=== PATIENT | male | born 1935 | race African-American/Black ===

== ENCOUNTER 2016-10-02 08:57 | Inpatient (IN) | payer OTHER ==
[2016-10-02] MEDS ORDERED: SODIUM CHLORIDE 1,000 ML IV STA (09:30)
--- NOTE | 2016-10-02 09:30 | PDOC ---
History of Present Illness - General History Source: Patient, Old Records - History of Present Illness Initial Comments: 10/02/16 09:48 The patient is a 81-year-old man, accompanied by family, with a significant past medical history of hypertension, non-insulin dependent diabetes mellitus ( baseline BGM 150s), arthritis, migraines and hemorrhoids who presents to the emergency department via for further evaluation of bright red scant rectal bleeding for the past 3-4 days. Patient states that he has experienced rectal bleeding in the past. This morning, he reports having a normal bowel movement- hard in texture with noted blood. He states that while having a bowel movement, he felt lightheaded and loss consciousness. No head injury, as family was present in the bathroom and caught him before falling. He states that he has experienced this in the past. He now reports associated symptoms of a migraine headache, for which always present with his history of rectal bleeding. He underwent a colonoscopy, approximately 2 years ago, which was indicative for polyps that were removed. He also states that he overall feels weak. No other complaints. Patient admits he came in to the emergency department due to losing consciousness today and is not concern for his rectal bleeding. He denies chest pain, cough, shortness of breath. He denies abdominal pain, nausea, vomiting, diarrhea He denies dysuria, hematuria, urinary frequency/urgency, flank pain. Allergies: No Known Drug Allergies Past Surgical History: Colonoscopy Social History: Former smoker (approximately 50 years ago). No EtOH and recreational drug use. Primary Care Physician: Dr. Juve Hickman Overhead Irrigator: Dr. James Gutierres <Lizz Noguera - Last Filed: 10/02/16 12:08> - General History Source: Patient Exam Limitations: No Limitations <Christi Woods - Last Filed: 10/03/16 08:20> - General Chief Complaint: Rectal Bleed Stated Complaint: GI BLEED Time Seen by Provider: 10/02/16 09:29 Past History <Lizz Noguera - Last Filed: 10/02/16 12:08> - Past Medical History Diabetes: Yes HTN: Yes Suicide Attempt (Hx): No - Immunization History Immunization Up to Date: Yes - Psycho/Social/Smoking Cessation Hx Anxiety: No Suicidal Ideation: No Smoking History: Former smoker Have you smoked in the past 12 months: No Number of Cigarettes Smoked Daily: 0 If you are a former smoker, when did you quit?: 50 YRS AGO Information on smoking cessation initiated: No Hx Alcohol Use: No Drug/Substance Use Hx: No Substance Use Type: None <Christi Woods - Last Filed: 10/03/16 08:20> - Past Medical History Allergies/Adverse Reactions: Allergies Allergy/AdvReac Type Severity Reaction Status Date / Time No Known Allergies Allergy Verified 10/02/16 09:25 Home Medications: Ambulatory Orders Acetaminophen/Caffeine/Butalb [Fioricet -] 1 tab PO TID 03/30/13 Glipizide [Glucotrol -] 5 mg PO DAILY 09/04/14 Losartan Potassium 100 mg PO DAILY 09/04/14 Review of Systems - Review of Systems Able to Perform ROS?: Yes Comments:: 10/02/16 09:48 GENERAL/CONSTITUTIONAL: Yes: Generalized weakness. No: fever, chills, loss of appetite. HEAD, EYES, EARS, NOSE AND THROAT: No: change in vision, ear pain, discharge, sore throat, throat swelling. CARDIOVASCULAR: Yes: Lightheadedness. Loss of Consciousness. No: chest pain, palpitations, RESPIRATORY: No: cough, shortness of breath, wheezing, hemoptysis, stridor. GASTROINTESTINAL: Yes: Hematochecia. No: nausea, vomiting, abdominal cramping, diarrhea, constipation. GENITOURINARY: No: dysuria, hematuria, frequency, urgency, flank pain. MUSCULOSKELET AL: No: back pain, neck pain, joint pain, muscle swelling or pain SKIN AND BREASTS: No: lesions, pallor, rash or easy bruising. NEUROLOGIC:Yes: Migraine headaches. Loss of consciousness. No: vertigo, paresthesias, weakness ENDOCRINE: No: unexplained weight gain or loss HEMATOLOGIC/LYMPHATIC: No: easy bleeding, swelling nodes <Lizz Noguera - Last Filed: 10/02/16 12:08> *Physical Exam - Vital Signs Last Vital Signs Temp Pulse Resp BP Pulse Ox 97.1 F L 118 H 20 92/60 100 10/02/16 09:23 10/02/16 09:23 10/02/16 09:23 10/02/16 09:23 10/02/16 09:23 - Physical Exam Comments: 10/02/16 09:48 GENERAL: The patient is in no acute distress. HEAD: Normal with no signs of trauma. EYES: PERRLA, EOMI, sclera anicteric, pale conjunctiva. ENT: Ears normal, nares patent, oropharynx clear without exudates. Moist mucous membranes. Pale lips. NECK: Normal range of motion, supple without lymphadenopathy, JVD, or masses. LUNGS: Breath sounds equal, clear to auscultation bilaterally. No wheezes, and no crackles. HEART:Regular rate and rhythm, normal S1 and S2 without murmur, rub or gallop. ABDOMEN: Soft, nontender, normoactive bowel sounds. No guarding, no rebound. RECTAL: No external hemorrhoids. There is some maroon colored stool. EXTREMITIES: Normal range of motion, no edema. No clubbing or cyanosis. No erythema, or tenderness. NEUROLOGICAL: Cranial nerves II through XII grossly intact. Normal speech. No focal neurological deficits. MUSCULOSKELETAL: Back non-tender to palpation, no CVA tenderness SKIN: Warm, Dry. Pale nail beds. No rashes or lesions noted. <Lizz Noguera - Last Filed: 10/02/16 12:08> - Vital Signs Last Vital Signs Temp Pulse Resp BP Pulse Ox 97.1 F L 118 H 20 92/60 100 10/02/16 09:23 10/02/16 09:23 10/02/16 09:23 10/02/16 09:23 10/02/16 09:23 <Christi Woods - Last Filed: 10/03/16 08:20> Heart Score/ECG Review #1 ECG reviewed & interpreted by me at: 10:32 10/02/16 10:32 Twelve-lead EKG was performed and reviewed by me. There is normal sinus rhythm with a tachycardiac rate of 117bpm. The axis is normal. The intervals are normal - pr: 158ms, QRS:90ms, QTc:460ms. There are no ST elevations. T waves peaked??? prominent v2, v3 <Christi Woods - Last Filed: 10/03/16 08:20> ED Treatment Course - LABORATORY CBC & Chemistry Diagram: 10/02/16 10:45 10/02/16 10:45 - RADIOLOGY Radiograph Interpretation: 10/02/16 11:25 EXAM: RAD/CHEST X-RAY PORTABLE Interpreted by Dr. Codey Laguna IMPRESSION: Parasellar study September 08, 2013. Unremarkable contour of the cardiomediastinal silhouette. No evidence of pneumonia, CHF, pleural effusion or pneumothorax. No lung mass is seen within limitation of examination. No evidence of bulky hilar adenopathy. Intact visualized osseous structures. Degenerative changes are noted in the region of the left greater tuberosity. <Lizz Noguera - Last Filed: 10/02/16 12:08> - LABORATORY CBC & Chemistry Diagram: 10/03/16 05:35 10/03/16 05:35 <Christi Woods - Last Filed: 10/03/16 08:20> Medical Decision Making - Critical Care Time Total Critical Care Time (minutes): 35 Critical Care Statement: The care of this patient involved high complexity decision making to prevent further life threatening deterioration of the patient 's condition and/or to evalute & treat vital organ system(s) failure or risk of failure. - Medical Decision Making 10/02/16 11:[address] Hickman. Immediate response. Case was discussed. <Lizz Noguera - Last Filed: 10/02/16 12:08> - Critical Care Time Total Critical Care Time (minutes): 35 Critical Care Statement: The care of this patient involved high complexity decision making to prevent further life threatening deterioration of the patient 's condition and/or to evalute & treat vital organ system(s) failure or risk of failure. - Medical Decision Making 10/02/16 09:30 A portion of this note was documented by scribe services under my direction. I have reviewed the details of the note, within reason, and agree with the documentation with the following case summary and management plan written by me. Nursing documentation reviewed and incorporated into medical decision making 10/02/16 10:57 This is a 81 yo M with a history of HTN, DM, prior history of rectal bleed, last colonoscopy 4 years ago (polyp which was removed) Pt notes that he has had rectal bleeding which fills part of the toilet bowl each time he has a bowel movement He is having 3-4 bowel movements per day He did not want to come to the hospital, though he has been feeling weak He came to the ER today because he felt light headed and dizzy and passed out No chest pain No palpitations No shortness of breath On examination: Pt is pale appearing pale conjunctiva and nail beds No abdominal tenderness to palpation Will do labs Pt appears to be anemic Will do type and screen Will start IV fluids 10/02/16 11:20 10/02/16 11:21 Laboratory Tests 04/03/13 10/02/16 06:00 10:45 WBC 8.1 9.0 Hgb 9.8 L D 7.8 L D Hct 23.4 L D MCV 97.9 H Plt Count 185 D 164 Will order PRBCs 10/02/16 11:32 Laboratory Tests 04/03/13 10/02/16 10/02/16 06:00 10:30 10:45 Sodium 142 Potassium 5.0 D Chloride 107 Carbon Dioxide 21 D Anion Gap 14 BUN 8 30 H D Creatinine 0.9 D 1.4 H D Random Glucose 160 H 266 H D Creatine Kinase Troponin I Stool Occult Blood Negative 10/02/16 10:45 Sodium Potassium Chloride Carbon Dioxide Anion Gap BUN Creatinine Random Glucose Creatine Kinase 122 Troponin I 0.04 D Stool Occult Blood Will contact Dr Hickman Will admit 10/02/16 11:[address] Hickman's service He is aware of this patient and would like pt admitted to tele Will consult GI Clinical impression: syncope, anemia, rectal bleeding <Christi Woods - Last Filed: 10/03/16 08:20> *DC/Admit/Observation/Transfer - Attestations Scribe Attestion: 10/02/16 09:48 Documentation prepared by Lizz Noguera, acting as medical assistant instructor for Christi Woods MD. <Lizz Noguera - Last Filed: 10/02/16 12:08> - Discharge Dispostion Admit: Yes <Christi Woods - Last Filed: 10/03/16 08:20> Diagnosis at time of Disposition: Rectal bleeding, Syncope and collapse - Discharge Dispostion Condition at time of disposition: Stable - Referrals
[2016-10-02 10:57] LABS: BASOPHIL 0.3 % (0-2.0); MCH 34.6 pg (25.7-33.7); MCHC 33.3 g/dl (32.0-35.9); MEAN CELL VOLUME 103.9 fl (80-96); MEAN PLT VOLUME 7.4 fl (7.5-11.1); NEUTROPHILS 79.8 % (42.8-82.8); PLATELET COUNT 164 K/MM3 (134-434); RDW 14.3 % (11.9-15.9)
[2016-10-02 11:14] LABS: INR 1.19 (0.82-1.09); PROTHROMBIN TIME (PATIENT) 13.1 SEC (9.98-11.88)
[2016-10-02 11:16] LABS: ALBUMIN 3.1 g/dl (3.4-5.0); BILIRUBIN,TOTAL 0.3 mg/dL (0.2-1.0); COCKROFT - GAULT 43.91; CREATININE 1.4 mg/dL (0.7-1.3); TOT PROT 5.8 g/dl (6.4-8.2)
[2016-10-02 11:22] LABS: TROPONIN I 0.04 ng/ml (0.00-0.05)
[2016-10-02] MEDS: PANTOPRAZOLE SODIUM 100 ML IVPB SCH (13:00)
[2016-10-02] MEDS ORDERED: D5-1/2NS+10 MEQ KCL - 1,000 ML IV SCH (13:30)
--- NOTE | 2016-10-02 13:38 | HP ---
Admitting History and Physical - Primary Care Physician PCP: Juve Hickman - Admission Chief Complaint: Passed out with bleeding CO History of Present Illness: 81 h/o HTN, Migraine, T2DM, Lower GI bleeding in the past present after an episode of transient loss of consciousness, as per patient he has been having bleeding CO for past 3 days today got up and walked to wash room felt weak and , dizzy passed out, patient landed on wall , came to rescue, transfer the patient to bed , patient was staring, diaphoretic and un responsive for 1 minute gradually became alert but felt weak came to Ed for evaluation in the Ed Hypotenuse with dehydration and low H/H EKG sinus tachycardia, GI and Cardiology consult called, patient denies any focal weakness, seizure,, incontinence, chest pain or SOB at the time of examination feels improved.No NSAID use, no c/o epigastric pain, nausea or vomiting.Last colonoscopy was 3 yrs ago. History Source: Patient Limitations to Obtaining History: No Limitations - Past Medical History Cardiovascular: Yes: HTN Gastrointestinal: Yes: Constipation, GI Bleed Heme/Onc: Yes: Anemia Endocrine: Yes: Diabetes Mellitus - Past Surgical History Past Surgical History: Yes: None - Smoking History Smoking history: Former smoker Have you smoked in the past 12 months: No Aproximately how many cigarettes per day: 0 If you are a former smoker, when did you quit?: 50 YRS AGO - Alcohol/Substance Use Hx Alcohol Use: No - Social History Usual Living Arrangement: Yes: With Spouse History of Recent Travel: No Home Medications - Allergies Allergies/Adverse Reactions: Allergies Allergy/AdvReac Type Severity Reaction Status Date / Time No Known Allergies Allergy Verified 10/02/16 09:25 - Home Medications Home Medications: Ambulatory Orders Acetaminophen/Caffeine/Butalb [Fioricet -] 1 tab PO TID 03/30/13 Glipizide [Glucotrol -] 5 mg PO DAILY 09/04/14 Losartan Potassium 100 mg PO DAILY 09/04/14 Lidocaine 2% Jelly [Xylocaine 2% Jelly] 10 applic TP TID PRN #1 applic 10/05/16 Pantoprazole Sodium [Protonix -] 20 mg PO DAILY #30 cap 10/05/16 Polyethylene Glycol 3350 [Miralax 119 gm Btl -] 17 gm PO DAILY #1 bottle Family Disease History - Family Disease History Family Disease History: Heart Disease: Father, Mother Review of Systems - Review of Systems Constitutional: reports: Diaphoresis Eyes: reports: No Symptoms. denies: Blind Spots HENT: reports: No Symptoms Neck: reports: No Symptoms Cardiovascular: reports: No Symptoms Respiratory: reports: No Symptoms Gastrointestinal: reports: Constipation. denies: Rectal Bleeding Genitourinary: reports: No Symptoms Musculoskeletal: reports: No Symptoms Neurological: reports: No Symptoms Endocrine: reports: No Symptoms Hematology/Lymphatic: reports: No Symptoms Psychiatric: reports: No Symptoms Physical Examination Vital Signs: Vital Signs Temperature 97.1 F L 10/02/16 09:23 Pulse Rate 118 H 10/02/16 09:23 Respiratory Rate 20 10/02/16 09:23 Blood Pressure 92/60 10/02/16 09:23 O2 Sat by Pulse Oximetry (%) 100 10/02/16 09:23 Constitutional: Yes: Well Nourished, Calm Eyes: Yes: WNL, Conjunctiva Clear, EOM Intact HENT: Yes: WNL, Atraumatic, Normocephalic Neck: Yes: WNL, Supple Cardiovascular: Yes: WNL, Regular Rate and Rhythm, S1, S2. No: Murmur Respiratory: Yes: WNL, Regular, CTA Bilaterally Gastrointestinal: Yes: WNL, Normal Bowel Sounds, Soft, Rectal Bleeding. No: Distention, Hematemesis ...Rectal Exam: Yes: Guaiac Positive Renal/: Yes: WNL. No: Anuria Musculoskeletal: Yes: WNL. No: Back Pain Extremities: Yes: WNL Edema: No Peripheral Pulses WNL: Yes Peripheral Pulses: Left Doralis Pedis: 1+, Right Dorsalis Pedis: 1+ Neurological: Yes: WNL, Alert, Oriented ...Motor Strength: WNL, LUE, LLE, RUE, RLE Labs: CBC,CMP WBC 9.0 K/mm3 (4.0-10.0) 10/02/16 10:45 RBC 2.25 M/mm3 (4.00-5.60) L D 10/02/16 10:45 Hgb 7.8 GM/dL (11.7-16.9) L D 10/02/16 10:45 Hct 23.4 % (35.4-49) L D 10/02/16 10:45 MCV 103.9 fl (80-96) H 10/02/16 10:45 MCHC 33.3 g/dl (32.0-35.9) 10/02/16 10:45 RDW 14.3 % (11.9-15.9) D 10/02/16 10:45 Plt Count 164 K/MM3 (134-434) 10/02/16 10:45 MPV 7.4 fl (7.5-11.1) L 10/02/16 10:45 Neutrophils % 79.8 % (42.8-82.8) 10/02/16 10:45 Lymphocytes % 13.0 % (8-40) D 10/02/16 10:45 Monocytes % 6.9 % (3.8-10.2) 10/02/16 10:45 Eosinophils % 0.0 % (0-4.5) D 10/02/16 10:45 Basophils % 0.3 % (0-2.0) 10/02/16 10:45 Sodium 142 mmol/L (136-145) 10/02/16 10:45 Potassium 5.0 mmol/L (3.5-5.1) D 10/02/16 10:45 Chloride 107 mmol/L (98-107) 10/02/16 10:45 Carbon Dioxide 21 mmol/L (21-32) D 10/02/16 10:45 Anion Gap 14 (8-16) 10/02/16 10:45 BUN 30 mg/dL (7-18) H D 10/02/16 10:45 Creatinine 1.4 mg/dL (0.7-1.3) H D 10/02/16 10:45 Creat Clearance w eGFR 48.89 (>60) 10/02/16 10:45 Random Glucose 266 mg/dL (74-106) H D 10/02/16 10:45 Calcium 8.0 mg/dL (8.5-10.1) L 10/02/16 10:45 Total Bilirubin 0.3 mg/dL (0.2-1.0) D 10/02/16 10:45 AST 12 U/L (15-37) L D 10/02/16 10:45 ALT 15 U/L (12-78) D 10/02/16 10:45 Alkaline Phosphatase 95 U/L (45-117) 10/02/16 10:45 Creatine Kinase 122 IU/L (39-308) 10/02/16 10:45 Troponin I 0.04 ng/ml (0.00-0.05) D 10/02/16 10:45 Total Protein 5.8 g/dl (6.4-8.2) L 10/02/16 10:45 Albumin 3.1 g/dl (3.4-5.0) L 10/02/16 10:45 Imaging - Results X-ray: Report Reviewed (Normal) EKG: Report Reviewed (Sinus Tcahycardia non specific St t changes) Problem List - Problems (1) Syncope and collapse Assessment/Plan: Due to dehydration and acute GI Blood loss but considering old age will monitor on tele serial CE and ECHO, cardiology consult hold BP meds for Hypotention , IV Hydration 2 unit PRBC Code(s): R55 - SYNCOPE AND COLLAPSE (2) Anemia due to acute blood loss Assessment/Plan: symptomaticc anemia due to acute lower GI Bleeding, blood transfusion, GI Consult NPO for possible procedure IV PPI Code(s): D62 - ACUTE POSTHEMORRHAGIC ANEMIA (3) Dehydration Assessment/Plan: IV Hydration F/UI BMP Code(s): E86.0 - DEHYDRATION (4) Acute lower GI bleeding Assessment/Plan: H/O lower Goi bleeding present with recurrence low H/H, NPO, IV PPI, GI consult , IV Hydration, serial H/H q 6 hrs, 2 unit PRBC target H/H 9.00 gm Code(s): K92.2 - GASTROINTESTINAL HEMORRHAGE, UNSPECIFIED (5) T2DM (type 2 diabetes mellitus) Assessment/Plan: Hold Po meds on correction dose insulin Code(s): E11.9 - TYPE 2 DIABETES MELLITUS WITHOUT COMPLICATIONS Qualifiers: Diabetes mellitus complication status: without complication Diabetes mellitus fci insulin use: without buttermaker use Qualified Code(s): E11.9 - Type 2 diabetes mellitus without complications (6) Migraine Code(s): G43.909 - MIGRAINE, UNSP, NOT INTRACTABLE, WITHOUT STATUS MIGRAINOSUS (7) Hypotension Assessment/Plan: Due to dehydration and bleeding CO improved after IV Hydration. Code(s): I95.9 - HYPOTENSION, UNSPECIFIED Qualifiers: Hypotension type: neurogenic orthostatic hypotension Qualified Code( s): G90.3 - Multi-system degeneration of the autonomic nervous system Assessment/Plan Active Medications Generic Name Dose Route Start Last Admin Trade Name Freq PRN Reason Stop Dose Admin Acetaminophen/Butalbital/Caffeine 1 tablet 10/02/16 14:00 Fioricet - PO TID PRN Sodium Chloride 1,000 mls @ 75 mls/hr 10/02/16 09:30 10/02/16 09:30 Normal Saline - IV 10/02/16 22:49 75 mls/hr ASDIR STA Administration Pantoprazole Sodium 100 mls @ 200 mls/hr 10/02/16 13:30 Protonix 40mg Ivpb (Pre-Docked) IVPB DAILY NATALIA Insulin Aspart 1 vial 10/02/16 16:30 Novolog Vial Sliding Scale - SQ TIDAC NATALIA Protocol (1) Syncope and collapse Assessment/Plan: Due to dehydration and acute GI Blood loss but considering old age will monitor on tele serial CE and ECHO, cardiology consult hold BP meds for Hypotention , IV Hydration 2 unit PRBC (2) Anemia due to acute blood loss Assessment/Plan: symptomatic anemia due to acute lower GI Bleeding, blood transfusion, GI Consult NPO for possible procedure IV PPI (3) Dehydration Assessment/Plan: IV Hydration F/UI BMP (4) Acute lower GI bleeding Assessment/Plan: H/O lower Goi bleeding present with recurrence low H/H, NPO, IV PPI, GI consult , IV Hydration, serial H/H q 6 hrs, 2 unit PRBC target H/H 9.00 gm (5) T2DM (type 2 diabetes mellitus) Assessment/Plan: Hold Po meds on correction dose insulin C (6) Migraine Code(s): G43.909 - MIGRAINE, UNSP, NOT INTRACTABLE, WITHOUT STATUS MIGRAINOSUS (7) Hypotension Assessment/Plan: Due to dehydration and bleeding CO improved after IV Hydration.
--- NOTE | 2016-10-02 15:09 | CON.GI ---
Consult Consult Specialty:: GI Referred by:: Dr. Hickman Reason for Consultation:: Rectal bleeding - History of Present Illness Chief Complaint: "I was constipated and bleeding" History of Present Illness: 81M admitted for evaluation of lightheadedness. He has been experiencing intermittent bright red blood per rectum (no clots) only when straining to have a bowel movement over the last 3 days. The stool he has passed has also been hard as well and he attempts manual disimpaction. There was no melena. He takes an OTC pain medication for his knee however he cannot remember the name of the medicine. He last noted rectal bleeding 6am. 10:45am blood work revealed revealed hgb of 7.8 and mcv of 103.9. He does not recall ever having a hematology evaluation and says that his last drink was last father's day in 2015. He is tachycardic in the ER and fluids / blood were just started. There has been no overt rectal bleeding in the ER. he was last seen in the office by Dr. Rivera 01/27/15. He saw Mr. Pritchett for fopllow-up of rectal bleeding. Colonoscopy had been performed 12/30/[address] rivera revealing moderate divertoculosis throughout the colon and enlarged/friable internal hemorrhoids. At the follow-up office visit, Dr. Rivera suggested conservative measures for treatment of the internal hemorrhoids (he felt this was the source of his previous bleeding) and if continued bleeding, surgical evaluation or evaluation for band ligation. He also had a colonoscopy 2012 when he was admitted to [facility] for hematochezia. Colonoscopy revealed blood in the left colon, moderate diverticulosis throughout the colon, enlarged hemorrhoids and led to the removal of a serrated adenoma of the transverse colon. EGD at that time revealed GERD, a hiatal hernia and antral erosions. The duodenum was normal. He currently denies any abdominal pain, nausea, vomiting. - History Source History Provided By: Patient, Family Member Limitations to Obtaining History: No Limitations - Past Medical History Cardio/Vascular: Yes: HTN Gastrointestinal: Yes: Constipation, Diverticulosis (with suspected diverticular bleed 2012, hemorrhoidal bleed 2014), Gastritis, GI Bleed, Hemorrhoids (Internal hemorrhoids noted from colonoscopy 2012), Hiatal Hernia, Other (colon polyps) Renal/: Yes: BPH, Renal Calculi Endocrine: Yes: Diabetes Mellitus Additional Medical History: Migraines - Past Surgical History Past Surgical History: Yes: None - Alcohol/Substance Use Hx Alcohol Use: Yes 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, Heroin - Smoking History Smoking history: Former smoker Have you smoked in the past 12 months: No Aproximately how many cigarettes per day: 0 If you are a former smoker, when did you quit?: 50 YRS AGO - Social History Usual Living Arrangement: With Spouse ADL: Independent 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 Place of : [facility] History of Recent Travel: No Home Medications - Allergies Allergies/Adverse Reactions: Allergies Allergy/AdvReac Type Severity Reaction Status Date / Time No Known Allergies Allergy Verified 10/02/16 09:25 - Home Medications Home Medications: Ambulatory Orders Acetaminophen/Caffeine/Butalb [Fioricet -] 1 tab PO TID 03/30/13 Glipizide [Glucotrol -] 5 mg PO DAILY 09/04/14 Losartan Potassium 100 mg PO DAILY 09/04/14 Family Disease History - Family Disease History Family Disease History: Heart Disease: Father (DM II), Mother (DM II), Other: Father, Mother, Brother (Pancreatic ca) Other Family History: No family history of colorectal ca. Review of Systems - Review of Systems Constitutional: reports: Weakness. denies: Diaphoresis, Loss of Appetite Cardiovascular: denies: Chest Pain Respiratory: denies: SOB Musculoskeletal: reports: Joint Pain (left knee) Physical Exam-GI Vital Signs: Vital Signs Temperature 97.1 F L 10/02/16 09:23 Pulse Rate 118 H 10/02/16 09:23 Respiratory Rate 20 10/02/16 09:23 Blood Pressure 92/60 10/02/16 09:23 O2 Sat by Pulse Oximetry (%) 100 10/02/16 09:23 Constitutional: Yes: Calm Eyes: No: Sclera Icterus Neck: Yes: Supple Cardiovascular: Yes: Tachycardia. No: Murmur Respiratory: Yes: CTA Bilaterally Gastrointestinal Inspection: No: Distention, Scars ...Auscultate: Yes: Normoactive Bowel Sounds ...Palpate: No: Hepatomegaly, Splenomegaly, Tenderness ...Percussion: No: Tympanitic ...Rectal Exam: Yes: Other (scant red blood mixed with scant brown liquid stool. 2 + prostate) Edema: No Neurological: Yes: Alert, Oriented Labs: INR, PTT INR 1.19 (0.82-1.09) H 10/02/16 10:45 CBC, BMP 10/02/16 10:45 10/02/16 10:45 Hepatic Panel Total Bilirubin 0.3 mg/dL (0.2-1.0) D 10/02/16 10:45 AST 12 U/L (15-37) L D 10/02/16 10:45 ALT 15 U/L (12-78) D 10/02/16 10:45 Alkaline Phosphatase 95 U/L (45-117) 10/02/16 10:45 Albumin 3.1 g/dl (3.4-5.0) L 10/02/16 10:45 Problem List - Problems (1) Rectal bleeding Assessment/Plan: Given history suspect either diverticular bleeding or hemorrhoidal bleeding, both of which can be precipitated by constipation. Mr. Pritchett is tachycardic/ hypovomemic and needs to be resuscitated. blood and IV fluids were started when i was evaluating him He should be placed in monitored setting and kept NPO except meds w/ small sips water If active bleeding persists he should be transferred to ICU for closer monitoring When resuscitated, will consider bowel prep for follow-up colon and for possible hemorrhoidal banding Monitor serial H/H Q 8 hours As outpatient once acute issues are resolved he will need to be on standing laxative therapy ie MiraLAX 17g daily Code(s): K62.5 - HEMORRHAGE OF ANUS AND RECTUM
[2016-10-02] MEDS ORDERED: ACETAMINOPHEN/CAFFEINE/BUTALBITAL 1 TAB ONE (15:52)
[2016-10-02] MEDS: ACETAMINOPHEN/CAFFEINE/BUTALBITAL 1 TAB PO PRN ×2 (15:54→23:43)
[2016-10-02] MEDS ORDERED: INSULIN SLIDING SCALE (NOVOLOG) 1 VIAL SQ SCH (16:30)
[2016-10-02 16:50] VITALS: BMI 23.7
[2016-10-02] MEDS: INSULIN SLIDING SCALE (NOVOLOG) 1 VIAL SQ SCH ×2 (17:50→23:15)
--- NOTE | 2016-10-02 17:58 | CON.CARD ---
Consult Consult Specialty:: Cardiology Referred by:: Juve Hickman MD Reason for Consultation:: Syncope - History of Present Illness Chief Complaint: Syncope History of Present Illness: 81 M h/o DM, HTN, diverticulosis, friable internal hemorrhoids, hiatal hernia, antral erosions admitted for evaluation of syncope with prodromal sxs of light- headedness, visual scotoma, flushing and diaphoresis and intermittent bright red blood per rectum (no clots) only when straining to have a bowel movement, blood work revealed revealed hgb of 7.8 and mcv of 103.9. Hemodynamics improving with volume resuscitation. 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, Heroin - Smoking History Smoking history: Former smoker Have you smoked in the past 12 months: No Aproximately how many cigarettes per day: 0 If you are a former smoker, when did you quit?: 50 YRS AGO - Social History Usual Living Arrangement: With Spouse ADL: Independent 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 History of Recent Travel: No Home Medications - Allergies Allergies/Adverse Reactions: Allergies Allergy/AdvReac Type Severity Reaction Status Date / Time No Known Allergies Allergy Verified 10/02/16 09:25 - Home Medications Home Medications: Ambulatory Orders Acetaminophen/Caffeine/Butalb [Fioricet -] 1 tab PO TID 03/30/13 Glipizide [Glucotrol -] 5 mg PO DAILY 09/04/14 Losartan Potassium 100 mg PO DAILY 09/04/14 Family Disease History - Family Disease History Family Disease History: Heart Disease: Father (DM II), Mother (DM II), Other: Father, Mother, Brother (Pancreatic ca) Other Family History: No family history of colorectal ca. Review of Systems - Review of Systems Gastrointestinal: reports: Rectal Bleeding Neurological: reports: Syncope Vital Signs: Vital Signs Temperature 97.4 F L 10/02/16 16:39 Pulse Rate 94 H 10/02/16 16:39 Respiratory Rate 17 10/02/16 16:39 Blood Pressure 117/67 10/02/16 16:39 O2 Sat by Pulse Oximetry (%) 100 10/02/16 16:39 Constitutional: Yes: No Distress, Calm Neck: Yes: Supple Respiratory: Yes: Regular, Diminished Gastrointestinal: Yes: Soft, Hemorrhoids, Hypoactive Bowel Sounds Cardiovascular: Yes: Regular Rate and Rhythm JVD: No Carotid Bruit: No Heart Sounds: Yes: S1, S2 Murmur: Yes: Systolic Murmur, Grade 1 Edema: No - Other Data Labs, Other Data: INR, PTT INR 1.19 (0.82-1.09) H 10/02/16 10:45 Troponin, BNP 10/02/16 14:56 Troponin I 0.05 Troponin, BNP 10/02/16 14:[address] @ 117 Ejection Fraction %: LVEF > or = 40 % Imaging - Results Chest X-ray: Report Reviewed (NAD) Problem List - Problems (1) Acute lower GI bleeding Code(s): K92.2 - GASTROINTESTINAL HEMORRHAGE, UNSPECIFIED (2) Anemia due to acute blood loss Code(s): D62 - ACUTE POSTHEMORRHAGIC ANEMIA (3) Hypotension Code(s): I95.9 - HYPOTENSION, UNSPECIFIED Qualifiers: Hypotension type: neurogenic orthostatic hypotension Qualified Code( s): G90.3 - Multi-system degeneration of the autonomic nervous system (4) Rectal bleeding Code(s): K62.5 - HEMORRHAGE OF ANUS AND RECTUM (5) Syncope and collapse Code(s): R55 - SYNCOPE AND COLLAPSE (6) T2DM (type 2 diabetes mellitus) Code(s): E11.9 - TYPE 2 DIABETES MELLITUS WITHOUT COMPLICATIONS Qualifiers: Diabetes mellitus complication status: without complication 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 Syncope suspect situational while straining and orthostatic etiologies 2. Diverticular vs hemorrhoidal bleeding precipitated by constipation and straining 3. H/o HTN 4. Type 2 DM P:1. Monitor Hgb post transfusion 2. Volume resuscitation and addressed abortive maneuvers once prodromal sxs are encountered 3. Plan for follow-up colon and for possible hemorrhoidal banding 4. Hold losartan pending hemodynamic stability 5. Thank you for consultative opportunity
[2016-10-03] MEDS: INSULIN SLIDING SCALE (NOVOLOG) 1 VIAL SQ SCH ×3 (05:54→18:02)
[2016-10-03 06:19] LABS: BASOPHIL 0.4 % (0-2.0); MCH 33.5 pg (25.7-33.7); MCHC 33.7 g/dl (32.0-35.9); MEAN CELL VOLUME 99.6 fl (80-96); MEAN PLT VOLUME 7.6 fl (7.5-11.1); NEUTROPHILS 70.1 % (42.8-82.8); PLATELET COUNT 150 K/MM3 (134-434); RDW 15.3 % (11.9-15.9); WHITE BLOOD COUNT 10.3 K/mm3 (4.0-10.0)
[2016-10-03 06:42] LABS: ALBUMIN 2.8 g/dl (3.4-5.0); CALCIUM 7.3 mg/dL (8.5-10.1)
[2016-10-03 06:45] LABS: BILIRUBIN,TOTAL 0.4 mg/dL (0.2-1.0); COCKROFT - GAULT 54.44; CREATININE 1.2 mg/dL (0.7-1.3); TOT PROT 5.2 g/dl (6.4-8.2)
--- NOTE | 2016-10-03 09:05 | PN ---
Progress Note, Physician Chief Complaint: Feels better History of Present Illness: Admitted with rectal bleeding Received 2units of PC .Hb this Am is 8.6 - Current Medication List Current Medications: Active Medications Acetaminophen/Butalbital/Caffeine (Fioricet -) 1 tablet PO TID PRN Last Admin: 10/02/16 23:43 Dose: 1 tablet Pantoprazole Sodium (Protonix 40mg Ivpb (Pre-Docked)) 100 mls @ 200 mls/hr IVPB DAILY [facility] Last Admin: 10/02/16 13:00 Dose: 200 mls/hr Insulin Aspart (Novolog Vial Sliding Scale -) 1 vial SQ Q6HPO [facility] PRN Reason: Protocol Last Admin: 10/03/16 05:54 Dose: Not Given - Objective Vital Signs: Vital Signs Temperature 97.3 F L 10/03/16 05:41 Pulse Rate 97 H 10/03/16 05:41 Respiratory Rate 18 10/03/16 05:41 Blood Pressure 112/64 10/03/16 05:41 O2 Sat by Pulse Oximetry (%) 100 10/02/16 21:00 Constitutional: Yes: No Distress Eyes: Yes: WNL HENT: Yes: WNL Neck: Yes: WNL Cardiovascular: Yes: WNL Respiratory: Yes: Regular Gastrointestinal: Yes: Normal Bowel Sounds ...Rectal Exam: Yes: Deferred Genitourinary: Yes: WNL Breast(s): Yes: WNL Musculoskeletal: Yes: Muscle Weakness Edema: No Neurological: Yes: Alert, Oriented Labs: CBC, BMP 10/03/16 05:35 10/03/16 05:35 INR, PTT INR 1.19 (0.82-1.09) H 10/02/16 10:45 Assessment/Plan Trasfuse 2units of PC Keep NPO ,will start on IV fluids
[2016-10-03] MEDS: PANTOPRAZOLE SODIUM 100 ML IVPB SCH (09:28)
[2016-10-03] MEDS: ACETAMINOPHEN/CAFFEINE/BUTALBITAL 1 TAB PO PRN ×2 (09:33→16:34)
--- NOTE | 2016-10-03 10:44 | PN ---
Progress Note, Physician History of Present Illness: No further near or true syncope, hematochezia has resolved. - Current Medication List Current Medications: Active Medications Acetaminophen/Butalbital/Caffeine (Fioricet -) 1 tablet PO TID PRN Last Admin: 10/03/16 09:33 Dose: 1 tablet Pantoprazole Sodium (Protonix 40mg Ivpb (Pre-Docked)) 100 mls @ 200 mls/hr IVPB DAILY [facility] Last Admin: 10/03/16 09:28 Dose: 200 mls/hr Potassium Chloride/Dextrose/Sod Cl (D5-1/2ns+10 Meq Kcl -) 1,000 mls @ 83 mls/ hr IV ASDIR [facility] Insulin Aspart (Novolog Vial Sliding Scale -) 1 vial SQ Q6HPO [facility] PRN Reason: Protocol Last Admin: 10/03/16 05:54 Dose: Not Given - Objective Vital Signs: Vital Signs Temperature 98.2 F 10/03/16 09:34 Pulse Rate 97 H 10/03/16 09:34 Respiratory Rate 20 10/03/16 09:34 Blood Pressure 117/78 10/03/16 09:34 O2 Sat by Pulse Oximetry (%) 100 10/02/16 21:00 Constitutional: Yes: No Distress, Calm Neck: Yes: Supple Cardiovascular: Yes: Regular Rate and Rhythm Respiratory: Yes: Regular, CTA Bilaterally Gastrointestinal: Yes: Normal Bowel Sounds, Soft Edema: No Labs: CBC, BMP 10/03/16 05:35 10/03/16 05:35 INR, PTT INR 1.19 (0.82-1.09) H 10/02/16 10:45 - ....Imaging EKG: Report Reviewed (Tele: NSR) Problem List - Problems (1) Acute lower GI bleeding Code(s): K92.2 - GASTROINTESTINAL HEMORRHAGE, UNSPECIFIED (2) Anemia due to acute blood loss Code(s): D62 - ACUTE POSTHEMORRHAGIC ANEMIA (3) Hypotension Code(s): I95.9 - HYPOTENSION, UNSPECIFIED Qualifiers: Hypotension type: neurogenic orthostatic hypotension Qualified Code( s): G90.3 - Multi-system degeneration of the autonomic nervous system (4) Rectal bleeding Code(s): K62.5 - HEMORRHAGE OF ANUS AND RECTUM (5) Syncope and collapse Code(s): R55 - SYNCOPE AND COLLAPSE (6) T2DM (type 2 diabetes mellitus) Code(s): E11.9 - TYPE 2 DIABETES MELLITUS WITHOUT COMPLICATIONS Qualifiers: Diabetes mellitus complication status: without complication Diabetes mellitus halfway insulin use: without halfway use Qualified Code(s): E11.9 - Type 2 diabetes mellitus without complications Assessment/Plan 10/02/2016 Echo Normal LV size and fxn, tr TR, MR 1. Syncope suspect situational while straining and orthostatic etiologies resolved 2. Diverticular vs hemorrhoidal bleeding precipitated by constipation and straining resolved 3. H/o HTN 4. Type 2 DM P:1. Monitor Hgb post transfusion 2. Volume resuscitation and addressed abortive maneuvers once prodromal sxs are encountered 3. Plan for follow-up colon and for possible hemorrhoidal banding 4. Resume losartan 25 qd given hemodynamic stability
--- NOTE | 2016-10-03 11:31 | EKG ---
Test Reason : Blood Pressure : / mmHG Vent. Rate : 086 BPM Atrial Rate : 086 BPM P-R Int : 180 ms QRS Dur : 088 ms QT Int : 382 ms P-R-T Axes : 055 035 019 degrees QTc Int : 457 ms SINUS RHYTHM WITH MARKED SINUS ARRHYTHMIA NONSPECIFIC ST ABNORMALITY ABNORMAL ECG WHEN COMPARED WITH ECG OF 30-MAR-2013 17:19, PREMATURE ATRIAL COMPLEXES ARE NO LONGER PRESENT Confirmed by SANDRA ROY, GOLDY ([id number]) on 10/03/2016 11:31:03 AM Referred By: BONG SOSA Confirmed By:GOLDY FLORES MD
--- NOTE | 2016-10-03 13:59 | PN ---
GI Progress Note Subjective: No abdominal pain No overt bleeding today Received 2 U PRBC - Objective Vital Signs: Vital Signs Temperature 98.2 F 10/03/16 09:34 Pulse Rate 97 H 10/03/16 09:34 Respiratory Rate 20 10/03/16 09:34 Blood Pressure 117/78 10/03/16 09:34 O2 Sat by Pulse Oximetry (%) 100 10/02/16 21:00 Constitutional: Calm Eyes: No: Sclera Icterus Cardiovascular: Yes: Regular Rate and Rhythm Respiratory: Yes: CTA Bilaterally Gastrointestinal Inspection: No: Distention ...Auscultate: Yes: Normoactive Bowel Sounds ...Palpate: No: Tenderness Edema: No Neurological: Yes: Alert Labs: CBC, BMP 10/03/16 05:35 10/03/16 05:35 INR, PTT INR 1.19 (0.82-1.09) H 10/02/16 10:45 Problem List - Problems (1) Rectal bleeding Assessment/Plan: No overt bleeding: ? hemorrhoidal / diverticular Discussed colonoscopy with possible banding of hemorrhoids. Discussed potential risks of the procedure like but not limited to bleeding, perforation requiring surgery to repair, infection, sedation medication effects all of which could be potentially life threatening. He has agreed to the procedure NPO after midnight except meds Monitor for active bleeding Code(s): K62.5 - HEMORRHAGE OF ANUS AND RECTUM
[2016-10-03] MEDS ORDERED: PEG3350/SOD SULF,BICARB,CL/KCL 4,000 ML SOLN.RECON PO ONE (16:00)
[2016-10-03] MEDS ORDERED: INSULIN (NOVOLOG) ASPART 100 UNITS/ML 10ML VIAL ONE (17:57)
[2016-10-03 18:12] LABS: BASOPHIL 0.4 % (0-2.0); EOSINOPHIL 0.2 % (0-4.5); MCH 32.9 pg (25.7-33.7); MCHC 34.1 g/dl (32.0-35.9); MEAN CELL VOLUME 96.6 fl (80-96); MEAN PLT VOLUME 7.3 fl (7.5-11.1); NEUTROPHILS 66.1 % (42.8-82.8); PLATELET COUNT 160 K/MM3 (134-434); RDW 17.8 % (11.9-15.9); WHITE BLOOD COUNT 10.3 K/mm3 (4.0-10.0)
[2016-10-03] MEDS: D5-1/2NS+10 MEQ KCL - 1,000 ML IV SCH (23:35)
[2016-10-04] MEDS: INSULIN SLIDING SCALE (NOVOLOG) 1 VIAL SQ SCH ×4 (00:24→17:25)
[2016-10-04] MEDS: ACETAMINOPHEN/CAFFEINE/BUTALBITAL 1 TAB PO PRN ×3 (05:46→20:44)
[2016-10-04 07:10] LABS: BASOPHIL 0.3 % (0-2.0); EOSINOPHIL 0.4 % (0-4.5); MCH 32.5 pg (25.7-33.7); MCHC 34.5 g/dl (32.0-35.9); MEAN CELL VOLUME 94.1 fl (80-96); NEUTROPHILS 71.6 % (42.8-82.8); PLATELET COUNT 136 K/MM3 (134-434); RDW 18.4 % (11.9-15.9); WHITE BLOOD COUNT 9.1 K/mm3 (4.0-10.0)
[2016-10-04 07:37] LABS: ALBUMIN 3.1 g/dl (3.4-5.0); ANION GAP 11 (8-16); CALCIUM 7.8 mg/dL (8.5-10.1); CO2 26 mmol/L (21-32); COCKROFT - GAULT 65.33; GLUCOSE,RANDOM 175 mg/dL (74-106); SGOT/AST 27 U/L (15-37); SGPT/ALT 15 U/L (12-78)
[2016-10-04 07:39] LABS: ALK PHOS 92 U/L (45-117); BILIRUBIN,TOTAL 0.5 mg/dL (0.2-1.0); TOT PROT 5.6 g/dl (6.4-8.2)
--- NOTE | 2016-10-04 09:18 | PN ---
Progress Note, Physician Chief Complaint: Feels good History of Present Illness: Admitted with anemia , received 4units of PC ,Hct is 31 - Current Medication List Current Medications: Active Medications Acetaminophen/Butalbital/Caffeine (Fioricet -) 1 tablet PO TID PRN Last Admin: 10/04/16 05:46 Dose: 1 tablet Pantoprazole Sodium (Protonix 40mg Ivpb (Pre-Docked)) 100 mls @ 200 mls/hr IVPB DAILY [facility] Last Admin: 10/03/16 09:28 Dose: 200 mls/hr Potassium Chloride/Dextrose/Sod Cl (D5-1/2ns+10 Meq Kcl -) 1,000 mls @ 83 mls/ hr IV ASDIR [facility] Last Admin: 10/03/16 23:35 Dose: 83 mls/hr Insulin Aspart (Novolog Vial Sliding Scale -) 1 vial SQ Q6HPO [facility] PRN Reason: Protocol Last Admin: 10/04/16 07:01 Dose: Not Given Losartan Potassium (Cozaar -) 25 mg PO DAILY [facility] - Objective Vital Signs: Vital Signs Temperature 97.7 F 10/04/16 06:00 Pulse Rate 84 10/04/16 06:00 Respiratory Rate 20 10/04/16 06:00 Blood Pressure 117/57 10/04/16 06:00 O2 Sat by Pulse Oximetry (%) 98 10/03/16 21:00 Constitutional: Yes: No Distress Eyes: Yes: WNL HENT: Yes: WNL Neck: Yes: WNL Cardiovascular: Yes: WNL Respiratory: Yes: WNL ...Rectal Exam: Yes: Deferred Genitourinary: Yes: WNL Musculoskeletal: Yes: WNL Extremities: Yes: WNL Neurological: Yes: Alert Psychiatric: Yes: Alert Labs: CBC, BMP 10/04/16 05:35 10/04/16 05:35 INR, PTT INR 1.19 (0.82-1.09) H 10/02/16 10:45 Assessment/Plan Cleared for colonoscopy
[2016-10-04] MEDS: LOSARTAN POTASSIUM 25 MG TABLET PO SCH (09:25)
[2016-10-04] MEDS: PANTOPRAZOLE SODIUM 100 ML IVPB SCH (09:26)
[2016-10-04] MEDS: D5-1/2NS+10 MEQ KCL - 1,000 ML IV SCH (09:26)
--- NOTE | 2016-10-04 12:31 | PN ---
Progress Note, Physician History of Present Illness: No further near or true syncope, hematochezia has resolved, underwent colonoscopy showed moderate diverticulosis, sessile polyp post polypectomy and large internal hemorrhoids banded x 4. - Current Medication List Current Medications: Active Medications Acetaminophen/Butalbital/Caffeine (Fioricet -) 1 tablet PO TID PRN Last Admin: 10/04/16 05:46 Dose: 1 tablet Pantoprazole Sodium (Protonix 40mg Ivpb (Pre-Docked)) 100 mls @ 200 mls/hr IVPB DAILY [facility] Last Admin: 10/04/16 09:26 Dose: 200 mls/hr Potassium Chloride/Dextrose/Sod Cl (D5-1/2ns+10 Meq Kcl -) 1,000 mls @ 83 mls/ hr IV ASDIR [facility] Last Admin: 10/04/16 09:26 Dose: 83 mls/hr Insulin Aspart (Novolog Vial Sliding Scale -) 1 vial SQ Q6HPO [facility] PRN Reason: Protocol Last Admin: 10/04/16 07:01 Dose: Not Given Losartan Potassium (Cozaar -) 25 mg PO DAILY [facility] Last Admin: 10/04/16 09:25 Dose: 25 mg - Objective Vital Signs: Vital Signs Temperature 97.7 F 10/04/16 06:00 Pulse Rate 84 10/04/16 06:00 Respiratory Rate 20 10/04/16 10:00 Blood Pressure 117/57 10/04/16 06:00 O2 Sat by Pulse Oximetry (%) 98 10/04/16 10:00 Constitutional: Yes: No Distress, Calm Neck: Yes: Supple Cardiovascular: Yes: Regular Rate and Rhythm Respiratory: Yes: Regular, CTA Bilaterally Gastrointestinal: Yes: Soft, Hypoactive Bowel Sounds Edema: No Labs: CBC, BMP 10/04/16 05:35 10/04/16 05:35 INR, PTT INR 1.19 (0.82-1.09) H 10/02/16 10:45 Problem List - Problems (1) Acute lower GI bleeding Code(s): K92.2 - GASTROINTESTINAL HEMORRHAGE, UNSPECIFIED (2) Anemia due to acute blood loss Code(s): D62 - ACUTE POSTHEMORRHAGIC ANEMIA (3) Hypotension Code(s): I95.9 - HYPOTENSION, UNSPECIFIED Qualifiers: Hypotension type: neurogenic orthostatic hypotension Qualified Code( s): G90.3 - Multi-system degeneration of the autonomic nervous system (4) Rectal bleeding Code(s): K62.5 - HEMORRHAGE OF ANUS AND RECTUM (5) Syncope and collapse Code(s): R55 - SYNCOPE AND COLLAPSE (6) T2DM (type 2 diabetes mellitus) Code(s): E11.9 - TYPE 2 DIABETES MELLITUS WITHOUT COMPLICATIONS Qualifiers: Diabetes mellitus complication status: without complication Diabetes mellitus mcc insulin use: without lobsterman use Qualified Code(s): E11.9 - Type 2 diabetes mellitus without complications Assessment/Plan 10/02/2016 Echo Normal LV size and fxn, tr TR, MR 1. Syncope suspect situational while straining and orthostatic etiologies resolved 2. Diverticular vs hemorrhoidal bleeding precipitated by constipation and straining since resolved post hemorrhoid banding 3. H/o HTN 4. Type 2 DM P:1. Monitor Hgb post transfusion 2. Volume resuscitation and addressed abortive maneuvers once prodromal sxs are encountered 3. High fiber diet, Miralax, Sitz baths, lidocaine to perinuem 4. Continue losartan 25 qd given hemodynamic stability
[2016-10-04] MEDS ORDERED: LIDOCAINE HCL 2% JELLY 10 ML CARTRIDGE ONE (12:54)
[2016-10-04] MEDS ORDERED: PT OWN MED DRAWER 7, Y5N ONE (18:08)
[2016-10-04] MEDS ORDERED: LIDOCAINE HCL 2% JELLY (30 ML/TUBE) TP PRN (18:48)
--- NOTE | 2016-10-04 18:48 | PN ---
Progress Note (short form) - Note Progress Note: GI Procedure NOte: Please see colonoscopy report. Small sigmoid polyp removed. Diverticulosis was noted but the bleeding is emanating form large internal hemorrhoids which were rubber band ligated x 4. Sitz baths and miralax ordered. May need percocet if viscous lidocaine is not adequate analgesic.
[2016-10-04] MEDS ORDERED: INSULIN (NOVOLOG) ASPART 100 UNITS/ML 10ML VIAL ONE (23:25)
[2016-10-05] MEDS: INSULIN SLIDING SCALE (NOVOLOG) 1 VIAL SQ SCH ×3 (00:33→12:06)
[2016-10-05] MEDS: PANTOPRAZOLE SODIUM 100 ML IVPB SCH (09:26)
[2016-10-05] MEDS: LOSARTAN POTASSIUM 25 MG TABLET PO SCH (09:27)
[2016-10-05] MEDS: ACETAMINOPHEN/CAFFEINE/BUTALBITAL 1 TAB PO PRN (09:27)
[2016-10-05] MEDS: D5-1/2NS+10 MEQ KCL - 1,000 ML IV SCH (09:35)
[2016-10-05] MEDS ORDERED: POLYETHYLENE GLYCOL 3350 119 GM BTL PO SCH (10:00)
--- NOTE | 2016-10-05 12:24 | PN ---
Progress Note, Physician Chief Complaint: Events noted Not in distress GI input noted History of Present Illness: Patient was seen and examined. Awake and alert. Chart was reviewed Denies chest pain, SOB or palpitations GI work up as noted S/P polypectomy and hemorrhoidal banding - Current Medication List Current Medications: Active Medications Acetaminophen/Butalbital/Caffeine (Fioricet -) 1 tablet PO TID PRN Last Admin: 10/05/16 09:27 Dose: 1 tablet Pantoprazole Sodium (Protonix 40mg Ivpb (Pre-Docked)) 100 mls @ 200 mls/hr IVPB DAILY [facility] Last Admin: 10/05/16 09:26 Dose: 200 mls/hr Potassium Chloride/Dextrose/Sod Cl (D5-1/2ns+10 Meq Kcl -) 1,000 mls @ 83 mls/ hr IV ASDIR [facility] Last Admin: 10/05/16 09:35 Dose: 83 mls/hr Insulin Aspart (Novolog Vial Sliding Scale -) 1 vial SQ Q6HPO [facility] PRN Reason: Protocol Last Admin: 10/05/16 12:06 Dose: 2 units Lidocaine HCl (Xylocaine 2% Jelly) 10 applic TP TID PRN PRN Reason: HEMORRHOIDS Stop: 10/07/16 06:01 Losartan Potassium (Cozaar -) 25 mg PO DAILY [facility] Last Admin: 10/05/16 09:27 Dose: 25 mg Polyethylene Glycol (Miralax (For Daily Use) -) 17 gm PO DAILY [facility] Last Admin: 10/05/16 09:27 Dose: 17 gm - Objective Vital Signs: Vital Signs Temperature 98.1 F 10/05/16 06:30 Pulse Rate 80 10/05/16 06:30 Respiratory Rate 20 10/05/16 10:00 Blood Pressure 117/70 10/05/16 06:30 O2 Sat by Pulse Oximetry (%) 98 10/05/16 10:00 Constitutional: Yes: No Distress Neck: Yes: Supple Cardiovascular: Yes: Regular Rate and Rhythm, S1, S2 Respiratory: Yes: CTA Bilaterally Gastrointestinal: Yes: Normal Bowel Sounds, Soft. No: Tenderness Edema: No Labs: CBC, BMP 10/04/16 05:35 10/04/16 05:35 Problem List - Problems (1) Acute lower GI bleeding Code(s): K92.2 - GASTROINTESTINAL HEMORRHAGE, UNSPECIFIED (2) Anemia due to acute blood loss Code(s): D62 - ACUTE POSTHEMORRHAGIC ANEMIA (3) Syncope and collapse Code(s): R55 - SYNCOPE AND COLLAPSE (4) T2DM (type 2 diabetes mellitus) Code(s): E11.9 - TYPE 2 DIABETES MELLITUS WITHOUT COMPLICATIONS Qualifiers: Diabetes mellitus complication status: without complication Diabetes mellitus senior care insulin use: without senior care use Qualified Code(s): E11.9 - Type 2 diabetes mellitus without complications Assessment/Plan 1. Syncope 2. Diverticular vs hemorrhoidal bleeding precipitated by constipation and straining - post hemorrhoidal banding 3. HTN 4. Type 2 diabetes mellitus PLAN: 1. Monitor Hgb post transfusion 2. High fiber diet, Miralax, Sitz baths and lidocaine to perinuem 3. Continue Losartan 25 mg qd Discharge planning when cleared by JENNIFER Caal MD
--- NOTE | 2016-10-05 13:30 | PN ---
Progress Note, Physician Chief Complaint: Still c/o bleeding AL - Current Medication List Current Medications: Active Medications Acetaminophen/Butalbital/Caffeine (Fioricet -) 1 tablet PO TID PRN Last Admin: 10/05/16 09:27 Dose: 1 tablet Pantoprazole Sodium (Protonix 40mg Ivpb (Pre-Docked)) 100 mls @ 200 mls/hr IVPB [facility]ILY [facility] Last Admin: 10/05/16 09:26 Dose: 200 mls/hr Potassium Chloride/Dextrose/Sod Cl (D5-1/2ns+10 Meq Kcl -) 1,000 mls @ 83 mls/ hr IV ASDIR [facility] Last Admin: 10/05/16 09:35 Dose: 83 mls/hr Insulin Aspart (Novolog Vial Sliding Scale -) 1 vial SQ Q6HPO [facility] PRN Reason: Protocol Last Admin: 10/05/16 12:06 Dose: 2 units Lidocaine HCl (Xylocaine 2% Jelly) 10 applic TP TID PRN PRN Reason: HEMORRHOIDS Stop: 10/07/16 06:01 Losartan Potassium (Cozaar -) 25 mg PO DAILY [facility] Last Admin: 10/05/16 09:27 Dose: 25 mg Polyethylene Glycol (Miralax (For Daily Use) -) 17 gm PO DAILY [facility] Last Admin: 10/05/16 09:27 Dose: 17 gm - Objective Vital Signs: Vital Signs Temperature 98.1 F 10/05/16 06:30 Pulse Rate 80 10/05/16 06:30 Respiratory Rate 20 10/05/16 10:00 Blood Pressure 117/70 10/05/16 06:30 O2 Sat by Pulse Oximetry (%) 98 10/05/16 10:00 Constitutional: Yes: Well Nourished, No Distress, Calm Eyes: Yes: WNL, Conjunctiva Clear HENT: Yes: WNL, Atraumatic, Normocephalic Neck: Yes: WNL, Supple, Trachea Midline Cardiovascular: Yes: WNL, Regular Rate and Rhythm Respiratory: Yes: WNL, Regular, CTA Bilaterally Gastrointestinal: Yes: WNL, Normal Bowel Sounds, Soft, Rectal Bleeding ...Rectal Exam: Yes: Deferred Genitourinary: Yes: WNL. No: Anuria, Bladder Distention Musculoskeletal: Yes: WNL, Back Pain, Joint Stiffness Extremities: Yes: WNL. No: Calf Tenderness Edema: No Peripheral Pulses WNL: Yes Peripheral Pulses: Left Doralis Pedis: 1+, Right Dorsalis Pedis: 1+ Neurological: Yes: WNL, Alert, Oriented ...Motor Strength: WNL, LUE, LLE, RUE, RLE Labs: CBC, BMP 10/04/16 05:35 10/04/16 05:35 INR, PTT INR 1.19 (0.82-1.09) H 10/02/16 10:45 Problem List - Problems (1) Syncope and collapse Assessment/Plan: Due to dehydration and acute GI Blood loss but considering old age will monitor on tele serial CE and ECHO, cardiology consult hold BP meds for Hypotention , IV Hydration 2 unit PRBC Code(s): R55 - SYNCOPE AND COLLAPSE (2) Anemia due to acute blood loss Assessment/Plan: symptomaticc anemia due to acute lower GI Bleeding, blood transfusion, GI Consult NPO for possible procedure IV PPI Code(s): D62 - ACUTE POSTHEMORRHAGIC ANEMIA (3) Dehydration Assessment/Plan: IV Hydration F/UI BMP Code(s): E86.0 - DEHYDRATION (4) Acute lower GI bleeding Assessment/Plan: H/O lower Goi bleeding present with recurrence low H/H, NPO, IV PPI, GI consult , IV Hydration, serial H/H q 6 hrs, 2 unit PRBC target H/H 9.00 gm Code(s): K92.2 - GASTROINTESTINAL HEMORRHAGE, UNSPECIFIED (5) T2DM (type 2 diabetes mellitus) Assessment/Plan: Hold Po meds on correction dose insulin Code(s): E11.9 - TYPE 2 DIABETES MELLITUS WITHOUT COMPLICATIONS Qualifiers: Diabetes mellitus complication status: without complication Diabetes mellitus care home insulin use: without care home use Qualified Code(s): E11.9 - Type 2 diabetes mellitus without complications (6) Migraine Code(s): G43.909 - MIGRAINE, UNSP, NOT INTRACTABLE, WITHOUT STATUS MIGRAINOSUS (7) Hypotension Code(s): I95.9 - HYPOTENSION, UNSPECIFIED Qualifiers: Hypotension type: neurogenic orthostatic hypotension Qualified Code( s): G90.3 - Multi-system degeneration of the autonomic nervous system
[2016-10-05 13:46] LABS: BASOPHIL 0.2 % (0-2.0); EOSINOPHIL 0.2 % (0-4.5); MCH 33.1 pg (25.7-33.7); MCHC 34.7 g/dl (32.0-35.9); MEAN CELL VOLUME 95.4 fl (80-96); MEAN PLT VOLUME 6.9 fl (7.5-11.1); NEUTROPHILS 76.5 % (42.8-82.8); PLATELET COUNT 160 K/MM3 (134-434); RDW 17.8 % (11.9-15.9); WHITE BLOOD COUNT 9.8 K/mm3 (4.0-10.0)
--- NOTE | 2016-10-05 13:52 | DS ---
[id number] Rate 20 10/05/16 10:00 Blood Pressure 117/70 10/05/16 06:30 O2 Sat by Pulse Oximetry (%) 98 10/05/16 10:00 Findings/Remarks: Hospital Course; 81 yrs old man with H/O HTN, T2DM, Migraine admitted with symptomatic, anemia, syncope secondary to acute lower intestinal bleeding , on arrrival H/H was 7.8/ 22, received 4 units blood transfusion, underwent Colonoscopy that shows large internal Hemorrhoids that ligated , H/H remained stable after transfusion , patient is being discharged home to F/U with PMD and GI, educated for NSAID or ASA contraindication. Constitutional: Yes: Well Nourished, No Distress, Calm Eyes: Yes: WNL, Conjunctiva Clear, EOM Intact HENT: Yes: WNL, Atraumatic, Normocephalic Neck: Yes: WNL, Supple, Trachea Midline Cardiovascular: Yes: WNL, Regular Rate and Rhythm Respiratory: Yes: WNL, Regular, CTA Bilaterally Gastrointestinal: Yes: WNL, Normal Bowel Sounds, Soft, Hematemesis Musculoskeletal: Yes: WNL, Back Pain, Joint Stiffness Extremities: Yes: WNL. No: Calf Tenderness Edema: No Peripheral Pulses WNL: Yes Peripheral Pulses: Left Doralis Pedis: 1+, Right Dorsalis Pedis: 1+ Neurological: Yes: WNL, Alert, Oriented ...Motor Strength: WNL, LUE, LLE, RUE, RLE Psychiatric: Yes: WNL, Alert, Oriented Labs: CBC, BMP 10/04/16 05:35 Discharge Summary Reason For Visit: SYNCOPE AND COLLAPSE,RECTAL HEMORRHAGE Current Active Problems Acute lower GI bleeding (Acute) Anemia due to acute blood loss (Acute) Dehydration (Acute) Hypotension (Acute) Migraine (Acute) Rectal bleeding (Acute) Syncope and collapse (Acute) T2DM (type 2 diabetes mellitus) (Acute) Condition: Stable - Instructions Referrals: Juve Hickman MD [Primary Care Provider] - 1 Week James Gutierres MD [Staff Physician] - 1 Week Disposition: HOME - Home Medications Comprehensive Discharge Medication List: Ambulatory Orders Acetaminophen/Caffeine/Butalb [Fioricet -] 1 tab PO TID 03/30/13 Glipizide [Glucotrol -] 1mg PO DAILY 09/04/14 Losartan Potassium 100 mg PO DAILY 09/04/14 Lidocaine 2% Jelly [Xylocaine 2% Jelly] 10 applic TP TID PRN #1 applic 10/05/16 Pantoprazole Sodium [Protonix -] 20 mg PO DAILY #30 cap 10/05/16 Polyethylene Glycol 3350 [Miralax 119 gm Btl -] 17 gm PO DAILY #1 bottle
--- NOTE | 2016-10-05 14:09 | PN ---
GI Progress Note Subjective: GI NOte: Remarkably free of severe rectal pain even after having a BM earlier today. Had slight bleeding but this has not recurred - Objective Vital Signs: Vital Signs Temperature 98.1 F 10/05/16 06:30 Pulse Rate 80 10/05/16 06:30 Respiratory Rate 20 10/05/16 10:00 Blood Pressure 117/70 10/05/16 06:30 O2 Sat by Pulse Oximetry (%) 98 10/05/16 10:00 ...Auscultate: Yes: Normoactive Bowel Sounds ...Palpate: Yes: Soft, Other (nontender) Labs: CBC, BMP 10/04/16 05:35 INR, PTT INR 1.19 (0.82-1.09) H 10/02/16 10:45 Laboratory Tests 10/03/16 10/04/16 10/05/16 17:45 05:35 13:25 Hgb 10.6 L D 10.9 L Pending Assessment/Plan Hemorrhoidal bleeding resolved with rubber band ligation. No GI objections to discharge. Discussed the need for Sitz baths with tawana farmer with his Kat.
[2016-10-05 14:36] VITALS: BP 111/71; PULSE 81; TEMP 98.3
[2016-10-06] MEDS ORDERED: PANTOPRAZOLE 20 MG TABLET (FP) PO SCH (10:00)
--- NOTE | 2016-10-09 11:20 | PATH ---
Surgical Pathology Report Patient Name: TATY CORTES [facility]. Rec. #: [id number] /Age/Gender: 1935 (Age: 81) / M Account: [id number] Location: 4 SO PEDS/ADOL Taken: 10/04/2016 Received: 10/04/2016 Reported: 10/07/2016 Physicians: James Gutierres M.D. Specimen(s) Received SIGMOID COLON POLYP BX Clinical History Rectal bleeding Sigmoid polyp, diverticulosis, bleeding hemorrhoids Final Diagnosis COLON, SIGMOID, POLYP, BIOPSY: FRAGMENTS OF SERRATED ADENOMA. Electronically Signed Tung Melchor M.D. Gross Description Received in formalin, labeled "sigmoid colon polyp biopsy" are 2 ray, irregular portions of soft tissue measuring 0.2 and 0.4 cm in greatest dimension. The specimens are submitted in toto in one cassette. /10/04/201610/04/2016
== END 2016-10-05 15:45 | disposition home or self-care (01) | DRG 348 ==
LOC: JER 08:57 → JERBED 11:52 → J4S 16:20
PROVIDERS: ADMIT Internal Medicine; ATTEND Internal Medicine
PROC: 30233N1 Transfusion of Nonautologous Red Blood Cells into Peripheral Vein, Percutaneous Approach (ICD-10-PCS; 2016-10-02)
PROC: 0DBN8ZX Excision of Sigmoid Colon, Via Natural or Artificial Opening Endoscopic, Diagnostic (ICD-10-PCS; 2016-10-04)
PROC: 06LY3ZC Occlusion of Hemorrhoidal Plexus, Percutaneous Approach (ICD-10-PCS; principal; 2016-10-04 12:00)
DX: K64.8 Other hemorrhoids (principal); K92.2 Gastrointestinal hemorrhage, unspecified; D62 Acute posthemorrhagic anemia; R55 Syncope and collapse; E11.9 Type 2 diabetes mellitus without complications; I95.9 Hypotension, unspecified; E86.0 Dehydration; G43.909 Migraine, unspecified, not intractable, without status migrainosus; I10 Essential (primary) hypertension; Z87.891 Personal history of nicotine dependence; D12.5 Benign neoplasm of sigmoid colon; K57.30 Diverticulosis of large intestine without perforation or abscess without bleeding
CPT/HCPCS: 36415; 36430; 71010-TC; 80053; 82272; 82550; 84484; 85025; 85610; 86850; 86900; 86901; 86922; 88305-TC; 93005; 93010; 93306-TC; 99283-25; P9038; P9058

== ENCOUNTER 2018-09-28 00:07 | Emergency (ER) | payer OTHER ==
--- NOTE | 2018-09-28 00:55 | PDOC ---
History of Present Illness - General Chief Complaint: Blood Pressure Problem Stated Complaint: NEAR SYNCOPE Time Seen by Provider: 09/28/18 00:25 History Source: Patient Exam Limitations: No Limitations - History of Present Illness Initial Comments: 09/28/18 00:53 Patient is 83M with history of HTN, migraines, T2DM, lower GI bleed, anemia here today complaining of possible syncope. Patient states that he started feeling "funny" which caused to his son calling 911 for an ambulance. His son states that the patient said he felt like he was going to pass out. The patient denies syncope. He denies chest pain, shortness of breath, fever, chills, nausea , vomiting. BP was reported to be 200 systolic in the field by EMS. Patient states that a month ago his medication for his headaches was changed to tylenol 3s, which has not been working. Son and son's mom state that the tylenol 3s have been making him worse. Past History - Past Medical History Allergies/Adverse Reactions: Allergies Allergy/AdvReac Type Severity Reaction Status Date / Time No Known Allergies Allergy Verified 09/28/18 00:58 Home Medications: Ambulatory Orders Acetaminophen/Caffeine/Butalb [Fioricet -] 1 tab PO TID 03/30/13 Glipizide [Glucotrol -] 5 mg PO DAILY 09/04/14 Losartan Potassium 100 mg PO DAILY 09/04/14 Lidocaine 2% Jelly [Xylocaine 2% Jelly] 10 applic TP TID PRN #1 applic 10/05/16 Pantoprazole Sodium [Protonix -] 20 mg PO DAILY #30 cap 10/05/16 Polyethylene Glycol 3350 [Miralax 119 gm Btl -] 17 gm PO DAILY #1 bottle Diabetes: Yes GI Disorders: Yes (GI BLEED,Colitis) HTN: Yes - Immunization History Immunization Up to Date: Yes - Suicide/Smoking/Psychosocial Hx Smoking History: Former smoker Have you smoked in the past 12 months: No Number of Cigarettes Smoked Daily: 0 If you are a former smoker, when did you quit?: 50 YRS AGO Hx Alcohol Use: No Drug/Substance Use Hx: No Substance Use Type: None Review of Systems - Review of Systems Able to Perform ROS?: Yes Comments:: 09/28/18 01:14 GENERAL/CONSTITUTIONAL: No fever or chills. No weakness. HEAD, EYES, EARS, NOSE AND THROAT: No change in vision. No sore throat. CARDIOVASCULAR: No chest pain or shortness of breath RESPIRATORY: No cough, wheezing, or hemoptysis. GASTROINTESTINAL: No nausea, vomiting, diarrhea or constipation. GENITOURINARY: No dysuria, frequency, or change in urination. MUSCULOSKELETAL: No joint or muscle swelling or pain. No neck or back pain. SKIN: No rash NEUROLOGIC: +headache, no vertigo, loss of consciousness, or change in strength/ sensation. HEMATOLOGIC/LYMPHATIC: No anemia, easy bleeding, or history of blood clots. ALLERGIC/IMMUNOLOGIC: No hives or skin allergy. *Physical Exam - Physical Exam Comments: 09/28/18 01:16 GENERAL: Awake, alert, and fully oriented, in no acute distress HEAD: No signs of trauma, normocephalic, atraumatic EYES: PERRLA, EOMI, sclera anicteric, conjunctiva clear ENT: Auricles normal inspection, hearing grossly normal, nares patent, oropharynx clear without exudates. Moist mucosa NECK: Normal ROM, supple, no lymphadenopathy, JVD, or masses LUNGS: No distress, speaks full sentences, clear to auscultation bilaterally HEART: Regular rate and rhythm, normal S1 and S2, no murmurs, rubs or gallops, peripheral pulses normal and equal bilaterally. ABDOMEN: Soft, nontender, normoactive bowel sounds. No guarding, no rebound. No masses EXTREMITIES: Normal inspection, Normal range of motion, no edema. No clubbing or cyanosis. NEUROLOGICAL: Cranial nerves II through XII grossly intact. Normal speech, no focal sensorimotor deficits SKIN: Warm, Dry, normal turgor, no rashes or lesions noted. ED Treatment Course - LABORATORY CBC & Chemistry Diagram: 09/28/18 01:28 09/28/18 01:28 - RADIOLOGY Radiology Studies Ordered: Category Date Time Status HEAD CT WITHOUT CONTRAST [CT] Stat CT Scan 09/28/18 00:40 Ordered CHEST X-RAY PORTABLE* [RAD] Stat Radiology 09/28/18 00:52 Ordered Medical Decision Making - Medical Decision Making 09/28/18 01:16 Patient is 83M with history of HTN, migraines, T2DM, lower GI bleed, anemia here today complaining of possible syncope and headache. States that this is his normal headache, now adamant that he did not syncopize. Fully alert and oriented. Son unsure of what happened. DDx includes, but is not limited to: disorientation 2/2 codeine, syncope, SAH. Will treat with reglan. Will do head ct, ekg, trop, cbc, cmp, ua. 09/28/18 03:05 CBC normal. CMP shows k 5.4, slight hemolysis, not concerned Trop neg. CT head normal. CXR clear. Patient continue to say he did not syncopize. Suspect medication affect. Patient has agreed to not use T3s. Patient has PCP follow up already scheduled for tomorrow. Will discharge with return precautions. *DC/Admit/Observation/Transfer Diagnosis at time of Disposition: Headache - Discharge Dispostion Disposition: HOME Condition at time of disposition: Good Decision to Admit order: No - Referrals Referrals: Juve Hickman MD [Primary Care Provider] - - Patient Instructions Printed Discharge Instructions: DI for Headache Additional Instructions: Please stop taking the tylenol 3s, as this is making you confused. Please return if you have any new, worsening or concerning symptoms, especially increasing pain, chest pain and shortness of breath. Please follow up with your primary care doctor tomorrow as scheduled. - Post Discharge Activity
[2018-09-28 00:58] VITALS: TEMP 98.4; BMI 20.6
[2018-09-28] MEDS ORDERED: METOCLOPRAMIDE HCL INJECTION 10 MG/2 ML VIAL IVPUSH ONE (01:18)
[2018-09-28] MEDS ORDERED: METOCLOPRAMIDE HCL INJECTION 10 MG/2 ML VIAL ONE (01:39)
[2018-09-28 01:55] LABS: BASO % 0.4 % (0-2.0); EOS % 0.8 % (0-4.5); HEMATOCRIT 37.4 % (35.4-49); HEMOGLOBIN 12.5 GM/dL (11.7-16.9); LYMPH % 17.8 % (8-40); MCH 34.8 pg (25.7-33.7); MCHC 33.3 g/dl (32.0-35.9); MEAN CELL VOLUME 104.3 fl (80-96); MEAN PLT VOLUME 7.4 fl (7.5-11.1); MONO % 8.5 % (3.8-10.2); NEUT % 72.5 % (42.8-82.8); PLATELET COUNT 175 K/MM3 (134-434); RBC 3.59 M/mm3 (4.00-5.60); RDW 13.3 % (11.9-15.9); WHITE BLOOD COUNT 7.1 K/mm3 (4.0-10.0)
--- NOTE | 2018-09-28 02:01 | PDOC ---
Documentation entered by Willie Gresham SCRIBE, acting as scribe for Elizabeth Amin MD. Elizabeth Amin MD: This documentation has been prepared by the thomibe, Willie Gresham SCRIBE, under my direction and personally reviewed by me in its entirety. I confirm that the documentation accurately reflects all work, treatment, procedures, and medical decision making performed by me. Attending Attestation - Resident Resident Name: Brennan Rogel - ED Attending Attestation I have performed the following: I have examined & evaluated the patient, The case was reviewed & discussed with the resident, I agree w/resident's findings & plan, Exceptions are as noted - HPI HPI: 09/28/18 00:42 83 yo male AGUILAR for syncopal episodes after a headache. He does state he has history of migraines 09/28/18 01:01 The patient is a 83 year old male with a significant past medical history of hypertension, diabetes, arthritis, migraines and hemorrhoids who presents to the emergency department with a syncopal episode prior to arrival . the patient states that he had a sudden onset of a progressively worsening headache today prior to his episode. He denies any lightheadedness, dizziness, visual changes, fever, chills, nausea, vomiting, diarrhea, constipation, urinary symptoms, numbness, weakness or tingling sensations. He denies any other symptoms or complaints. - Physicial Exam PE: 09/28/18 01:56 thin 83 yo male AGUILAR after his son called 911 because he felt his father was not acting like himself head ncat eyes raquel eomi neck supple lungs cta b/l cvs rrr s1s2 abd soft,nontender ext no edema skin warm and dry neuro alert,conversant.,moving all extremities - Medical Decision Making 09/28/18 02:00 ekg nsr @ [address] scan head,labs pending case signed out to Dr Laughlin
--- NOTE | 2018-09-28 02:06 | PDOC ---
*Physical Exam - Vital Signs Last Vital Signs Temp Pulse Resp BP Pulse Ox 98.4 F 61 19 161/85 99 09/28/18 00:10 09/28/18 00:10 09/28/18 00:10 09/28/18 00:10 09/28/18 00:10 ED Treatment Course - LABORATORY CBC & Chemistry Diagram: 09/28/18 01:28 09/28/18 01:28 - Medications Given in the ED: ED Medications Discontinued Medications Generic Name Dose Route Start Last Admin Trade Name Mary Ann PRN Reason Stop Dose Admin Metoclopramide HCl 10 mg 09/28/18 01:18 09/28/18 01:46 Reglan Injection - IVPUSH 09/28/18 01:19 10 mg ONCE ONE Administration Medical Decision Making - Medical Decision Making 09/28/18 02:06 Patient Name: TATY CORTES THIS IS A PRELIMINARY REPORT FROM [facility] DATE OF SERVICE: 2018-09-28 01:03:46 IMAGES: 183 EXAM: HEAD CT WITHOUT CONTRAST HISTORY: Dizziness COMPARISON: None. FINDINGS: The ventricular system is midline and nondilated. The sulcal pattern is normal for the patient's age. Minimal small vessel ischemic changes are noted. There is no bleed, mass, extra-axial fluid collection or mass effect. Old nasal bridge fracture is noted. No skull fracture or skull lesion is identified. The visualized paranasal sinuses and mastoid air cells are clear. IMPRESSION: No acute pathology. 09/28/18 02:39 I discussed with patient that he should stay and get admission to telelmetry unit and see his PMD in the hospital tomorrow, rather than 09/28/18 03:02 UA is normal *DC/Admit/Observation/Transfer - Referrals Referrals: Juve Hickman MD [Primary Care Provider] - - Patient Instructions - Post Discharge Activity
[2018-09-28 02:10] LABS: INR 1.03 (0.83-1.09); PROTHROMBIN TIME (PATIENT) 12.1 SEC (9.7-13.0)
[2018-09-28 02:29] LABS: ALBUMIN 3.6 g/dl (3.4-5.0); ALK PHOS 90 U/L (45-117); ANION GAP 4 MMOL/L (8-16); BILIRUBIN,TOTAL 0.6 mg/dL (0.2-1); BLOOD UREA NITROGEN 15 mg/dL (7-18); CALCIUM 9.1 mg/dL (8.5-10.1); CHLORIDE 106 mmol/L (98-107); CO2 27 mmol/L (21-32); GLUCOSE,RANDOM 113 mg/dL (74-106); MAGNESIUM 2.2 mg/dL (1.8-2.4); POTASSIUM 5.4 mmol/L (3.5-5.1); SGOT/AST 41 U/L (15-37); SGPT/ALT 25 U/L (13-61); SODIUM 138 mmol/L (136-145); TOT PROT 7.1 g/dl (6.4-8.2)
[2018-09-28] MEDS ORDERED: SODIUM POLYSTYRENE SULFONATE 15 GM/60 ML BOTTLE PO ONE (02:34)
[2018-09-28] MEDS ORDERED: FOLIC ACID INJECTION - 1 MG, THIAMINE HCL 100 MG, MULTIVIT INJECTION ADULT 10 ML in SOD... IVPB ONE (02:38)
[2018-09-28 02:40] LABS: PH,URINE 6.5 (5.0-8.0); URINE APPEARANCE CLEAR; URINE BILIRUBIN NEGATIVE (NEGATIVE); URINE COLOR YELLOW; URINE GLUCOSE (UA) NEGATIVE (NEGATIVE); URINE KETONE NEGATIVE (NEGATIVE); URINE LEUK ESTERASE NEGATIVE (NEGATIVE); URINE NITRITE NEGATIVE (NEGATIVE); URINE PROTEIN NEGATIVE (NEGATIVE)
[2018-09-28 03:36] VITALS: BP 167/87; PULSE 67
--- NOTE | 2018-09-28 09:52 | EKG ---
Test Reason : Blood Pressure : / mmHG Vent. Rate : 063 BPM Atrial Rate : 063 BPM P-R Int : 196 ms QRS Dur : 090 ms QT Int : 422 ms P-R-T Axes : 048 013 027 degrees QTc Int : 431 ms NORMAL SINUS RHYTHM POSSIBLE LEFT ATRIAL ENLARGEMENT BORDERLINE ECG WHEN COMPARED WITH ECG OF 03-OCT-2016 09:03, NO SIGNIFICANT CHANGE WAS FOUND Confirmed by CHELSEA JOSHI MD ([id number]) on 09/28/2018 9:51:43 AM Referred By: Confirmed By:CHELSEA JOSHI MD
== END 2018-09-28 03:50 | disposition home or self-care (01) ==
LOC: JER 00:07
PROC: 3E033GC Introduction of Other Therapeutic Substance into Peripheral Vein, Percutaneous Approach (ICD-10-PCS; principal; 2018-09-28)
DX: R51 Headache (principal); I10 Essential (primary) hypertension; E11.9 Type 2 diabetes mellitus without complications; D64.9 Anemia, unspecified
CPT/HCPCS: 36415; 70450-TC; 71045-TC-FY; 80053; 81003; 82550; 82553; 83735; 84484; 85025; 85610; 93005; 93010; 96374; 99283-25; J7030

== ENCOUNTER 2019-06-03 20:15 | Inpatient (IN) | payer OTHER ==
[2019-06-03 22:16] LABS: BASO % 0.2 % (0-2.0); EOS % 0.6 % (0-4.5); HEMATOCRIT 31.8 % (35.4-49); HEMOGLOBIN 10.9 GM/dl (11.7-16.9); LYMPH % 11.2 % (8-40); MCH 35.8 pg (25.7-33.7); MCHC 34.3 g/dl (32.0-35.9); MEAN CELL VOLUME 104.5 fl (80-96); MEAN PLT VOLUME 7.3 fl (7.5-11.1); PLATELET COUNT 251 K/MM3 (134-434); RBC 3.04 M/mm3 (4.00-5.60); RDW 15.3 % (11.9-15.9); WHITE BLOOD COUNT 6.9 K/mm3 (4.0-10.8)
--- NOTE | 2019-06-03 22:32 | PDOC ---
Documentation entered by Gabriela Shannon SCRIBE, acting as scribe for Anthony Hernandez MD. Anthony Hernandez MD: This documentation has been prepared by the Shiva henry Xhesika, SCRIBE, under my direction and personally reviewed by me in its entirety. I confirm that the documentation accurately reflects all work, treatment, procedures, and medical decision making performed by me. History of Present Illness - General Chief Complaint: Weakness Stated Complaint: ELEVATED LIVER ENZYMES Time Seen by Provider: 06/03/19 20:39 History Source: Patient Exam Limitations: No Limitations - History of Present Illness Initial Comments: 06/03/19 21:11 The patient is an 84 year old male with a significant PMH of HTN, migraines, T2DM, lower GI bleed, anemia who presents to the emergency department from Dr. Oates office for abnormal lab results. at bedside states the patient saw his protective service specialist Dr. Enriquez last week, had blood work done and the results came back today, prompting pt to come to the ER for further evaluation. Per lab report results patient had a potassium of 2.7, alb/creat 69.9, 1.7 bilirubin, 761 alkaline phosphate, 208 AST, and 241 ALT. notes the patient ran out of his migraine medication back in February/March 2019 and was taking tylenol and excedrin as replacements up until April when patient got his prescription refilled. notes the patient has been endorsing 2 weeks of intermittent diarrhea and increased weakness. notes the patient lost 29pds in the last couple of months. Patient denies change in diet or intentionally trying to lose weight. The patient denies chest pain, shortness of breath, headache and dizziness. Denies fever, chills, cough, nausea, vomiting, and constipation. Denies dysuria , frequency, urgency and hematuria. Allergies: NKDA PCP: Juve Meng Managing Director [employer] Dr. Enriquez Past History - Past Medical History Allergies/Adverse Reactions: Allergies Allergy/AdvReac Type Severity Reaction Status Date / Time No Known Allergies Allergy Verified 09/28/18 00:58 Home Medications: Ambulatory Orders Acetaminophen/Caffeine/Butalb [Fioricet Tablets] 1 tab PO TID 03/30/13 Glipizide [Glucotrol -] 5 mg PO DAILY 09/04/14 Losartan Potassium 100 mg PO DAILY 09/04/14 Lidocaine 2% Jelly [Xylocaine 2% Jelly] 10 applic TP TID PRN #1 applic 10/05/16 Pantoprazole Sodium [Protonix -] 20 mg PO DAILY #30 cap 10/05/16 Polyethylene Glycol 3350 [Miralax 119 gm Btl -] 17 gm PO DAILY #1 bottle COPD: No Diabetes: Yes GI Disorders: Yes (GI BLEED,Colitis) HTN: Yes Other medical history: MIGRAINES - Immunization History Immunization Up to Date: Yes - Psycho Social/Smoking Cessation Hx Smoking History: Former smoker Have you smoked in the past 12 months: No Number of Cigarettes Smoked Daily: 0 If you are a former smoker, when did you quit?: 50 YRS AGO Information on smoking cessation initiated: No Hx Alcohol Use: No Drug/Substance Use Hx: No Substance Use Type: None Review of Systems - Review of Systems Able to Perform ROS?: Yes Comments:: 06/03/19 21:12 Constitutional - Pt denies Fever, Chills. + weight loss. +weakness HEENT: denies vision changes, sore throat Respiratory: Denies cough, sob, hemoptysis Cardiac: denies chest pain, palpitations, light headedness, leg swelling Abd/GI: denies abd pain, nausea, vomiting, blood per rectum, melena. +diarrhea : denies dysuria, frequency, discharge Musculskelatal - denies back pain, joint swelling skin - denies bruising, erythema, rash neurological: denies headache, numbness, focal weakness, tingling, ataxia, weakness hematologic: denies anemia, easy bruising, easy bleeding *Physical Exam - Vital Signs Last Vital Signs Temp Pulse Resp BP Pulse Ox 97.3 F L 49 L 16 130/67 100 06/03/19 20:18 06/03/19 20:18 06/03/19 20:18 06/03/19 20:18 06/03/19 20:18 - Physical Exam 06/03/19 22:35 GENERAL: The patient is awake, alert, and fully oriented, Nontoxic - in no acute distress, Cachectic appearing. HEAD: Normocephalic, atraumatic. EYES: extraocular movements intact, sclera anicteric, conjunctiva clear. ENT: Normal voice, Moist mucous membranes. NECK: Normal range of motion, supple LUNGS: Breath sounds equal, clear to auscultation bilaterally. No wheezes, no rhonchi, no rales. HEART: Regular rate and rhythm, normal S1 and S2 without murmur, rub or gallop. ABDOMEN: Soft, nontender, hepatemegaly EXTREMITIES: Normal range of motion, no edema. NEUROLOGICAL: No facial assymetry, Normal speech, PSYCH: Normal mood, normal affect. SKIN: Warm, Dry, normal turgor, Heart Score/ECG Review - ECG Impressions Comment:: 06/03/19 23:11 Twelve-lead EKG was performed and reviewed by me. There is normal sinus rhythm with a Rate of 48 Abnormal R wave progression U waves present QTc interval of 466 PVCs present ED Treatment Course - LABORATORY CBC & Chemistry Diagram: 06/03/19 22:00 06/03/19 22:00 - RADIOLOGY Radiology Studies Ordered: Category Date Time Status CHEST PA & LAT [RAD] Stat Radiology 06/03/19 21:06 Taken Medical Decision Making - Medical Decision Making 06/03/19 21:31 84-year-old gentleman presenting with elevated liver enzymes as an outpatient And generalized weakness/malaise and weight loss. Patient has no acute complaints besides the malaise. Patient does have a history of migraines and did use both Excedrin and Tylenol more than usual in March. Differential for the patient's symptoms includes possible Tylenol overdose, consider also malignancy based on the patient's cachectic appearance and weight loss. We will send labs, tylenol, liver enzymes will reassess 06/03/19 23:09 Patient's blood work was reviewed and noted for hypokalemia, will replete. The patient's LFTs are also elevated including an elevated direct and total bilirubin. The patient will also likely need nonemergent ultrasound or CAT scan to further evaluate. Discharge - Discharge Information Problems reviewed: Yes Clinical Impression/Diagnosis: Hypokalemia, Elevated liver enzymes, Weight loss Condition: Stable - Admission Yes - Follow up/Referral Referrals: Juve Hickman MD [Primary Care Provider] - - Patient Discharge Instructions - Post Discharge Activity
[2019-06-03 22:34] LABS: INR 1.27 (0.82-1.09); PROTHROMBIN TIME (PATIENT) 14.1 SEC (10.2-13.0)
[2019-06-03 22:37] LABS: ALBUMIN 3.1 g/dl (3.4-5.0); BILIRUBIN,DIRECT 3.5 mg/dL (0.0-0.2); BILIRUBIN,TOTAL 5.3 mg/dl (0.2-1); CALCIUM 8.4 mg/dl (8.5-10); CREATININE 0.6 mg/dl (0.55-1.3); TOT PROT 6.1 g/dl (6.4-8.2)
[2019-06-03 22:38] LABS: POTASSIUM 2.4 mmol/L (3.5-5.1)
[2019-06-03] MEDS ORDERED: POTASSIUM CHLORIDE ORAL LIQUID 20 MEQ/15 ML PO ONE (22:56)
[2019-06-03] MEDS ORDERED: POTASSIUM CHLORIDE TABS 20 MEQ TABLET.ER (FP) PO ONE ×2 (23:09→23:11)
[2019-06-03] MEDS ORDERED: KCL 10 MEQ IVPB 10 MEQ/100 ML INFUS.BAG IVPB ONE (23:15)
--- NOTE | 2019-06-03 23:34 | HP ---
CHIEF COMPLAINT: Weakness PCP: Dr. Juve Hickman GI: Dr. Gutierres Endocrine: Dr. Enriquez HISTORY OF PRESENT ILLNESS: 84 year-old male with a PMH significant for HTN, Type II NIDDM, lower GI bleeding, and renal calculi. Patient saw his spindle maker Dr. Enriquez last week , had blood work done, and results back today showed acute deterioration in liver function prompting patient coming to [facility]. Patient's reports patient with diarrhea and increasing weakness and fatigue over the past several weeks, and a 29 lb weight loss over the past several months. 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 Smoking: quit 50 years ago Alcohol: no Drugs: remote Allergies No Known Allergies Allergy (Verified 09/28/18 00:58) HOME MEDICATIONS: Home Medications Medication Instructions Recorded Acetaminophen/Caffeine/Butalb 1 tab PO TID 03/30/13 [Fioricet Tablets] Glipizide [Glucotrol -] 5 mg PO DAILY 09/04/14 Losartan Potassium 100 mg PO DAILY 09/04/14 Lidocaine 2% Jelly [Xylocaine 2% 10 applic TP TID PRN #1 applic 10/05/16 Jelly] Pantoprazole Sodium [Protonix -] 20 mg PO DAILY #30 cap 10/05/16 Polyethylene Glycol 3350 [Miralax 17 gm PO DAILY #1 bottle 10/05/16 119 gm Btl -] REVIEW OF SYSTEMS CONSTITUTIONAL: +generalized weakness, malaise, weight loss Absent: fever, chills, diaphoresis HEENT: Absent: rhinorrhea, nasal congestion, throat pain, throat swelling, difficulty swallowing, mouth swelling, ear pain, eye pain, visual changes CARDIOVASCULAR: Absent: chest pain, syncope, palpitations, irregular heart rate, lightheadedness , peripheral edema RESPIRATORY: Absent: cough, shortness of breath, dyspnea with exertion, orthopnea, wheezing, stridor, hemoptysis GASTROINTESTINAL: +diarrhea Absent: abdominal pain, abdominal distension, nausea, vomiting, diarrhea, constipation, melena, hematochezia GENITOURINARY: Absent: dysuria, frequency, urgency, hesitancy, hematuria, flank pain, genital pain MUSCULOSKELETAL: Absent: myalgia, arthralgia, joint swelling, back pain, neck pain SKIN: Absent: rash, itching, pallor HEMATOLOGIC/IMMUNOLOGIC: Absent: easy bleeding, easy bruising, lymphadenopathy, frequent infections ENDOCRINE: Absent: unexplained weight gain, unexplained weight loss, heat intolerance, cold intolerance NEUROLOGIC: Absent: headache, focal weakness or paresthesias, dizziness, unsteady gait, seizure, mental status changes, bladder or bowel incontinence PSYCHIATRIC: Absent: anxiety, depression, suicidal or homicidal ideation, hallucinations. PHYSICAL EXAMINATION Vital Signs - 24 hr 06/03/19 20:18 Temperature 97.3 F L Pulse Rate 49 L Respiratory 16 Rate Blood Pressure 130/67 O2 Sat by Pulse 100 Oximetry (%) GENERAL: Awake, alert, and fully oriented, in no acute distress. Thin, frail, cachectic. Temporal wasting. Protruding clavicles. Absence of body fat, loss of muscle mass. HEAD: Normal with no signs of trauma. EYES: Mildly icteric. LUNGS: Breath sounds equal, clear to auscultation bilaterally. No wheezes, and no crackles. No accessory muscle use. HEART: Regular rate and rhythm, normal S1 and S2 ABDOMEN: Soft, nontender, not distended, normoactive bowel sounds, no guarding, no rebound, no masses. No hepatomegaly or splenomegaly. MUSCULOSKELETAL: Normal range of motion at all joints. No bony deformities or tenderness. No CVA tenderness. UPPER EXTREMITIES: 2+ pulses, warm, well-perfused. No cyanosis. No clubbing. No peripheral edema. LOWER EXTREMITIES: 2+ pulses, warm, well-perfused. No calf tenderness. No peripheral edema. NEUROLOGICAL: Cranial nerves II-XII intact. Normal speech. Laboratory Results - last 24 hr 06/03/19 06/03/19 06/03/19 22:00 22:00 22:00 WBC 6.9 RBC 3.04 L Hgb 10.9 L Hct 31.8 L MCV 104.5 H MCH 35.8 H MCHC 34.3 RDW 15.3 Plt Count 251 MPV 7.3 L Absolute Neuts (auto) 5.6 Neutrophils % 81.0 Lymphocytes % 11.2 Monocytes % 7.0 Eosinophils % 0.6 Basophils % 0.2 PT with INR INR Sodium 138 Potassium 2.4 L* Chloride 107 Carbon Dioxide 25 Anion Gap 6 L BUN 7.0 Creatinine 0.6 Est GFR (CKD-EPI)AfAm 108.52 Est GFR (CKD-EPI)NonAf 93.63 Random Glucose 139 H Calcium 8.4 L Total Bilirubin 5.3 H Direct Bilirubin 3.5 H AST 229 H ALT 298 H Alkaline Phosphatase 711 H Total Protein 6.1 L Albumin 3.1 L Lipase Acetaminophen <10 06/03/19 06/03/19 22:00 22:00 WBC RBC Hgb Hct MCV MCH MCHC RDW Plt Count MPV Absolute Neuts (auto) Neutrophils % Lymphocytes % Monocytes % Eosinophils % Basophils % PT with INR 14.1 H INR 1.27 H Sodium Potassium Chloride Carbon Dioxide Anion Gap BUN Creatinine Est GFR (CKD-EPI)AfAm Est GFR (CKD-EPI)NonAf Random Glucose Calcium Total Bilirubin Direct Bilirubin AST ALT Alkaline Phosphatase Total Protein Albumin Lipase 353 Acetaminophen ASSESSMENT/PLAN 84 year-old male with a PMH significant for HTN, Type II NIDDM, lower GI bleeding, and renal calculi. Admitted for abnormal liver function, fatigue, weight loss. Abnormal liver function --CTAP pending Hypertension --BP stable --continue losartan Type II NIDDM --Novolog sliding scale coverage Lower GI bleeding --stable --trend h/h --continue protonix Renal calculi --stable Hypokalemia --replete FEN Fluids: NS@75mL/hr Electrolytes: replete as indicated Nutrition: low sodium, diabetic DVT prophylaxis: subq heparin Physical therapy Dispo: continues to require inpatient care. Full code. Visit type - Emergency Visit Emergency Visit: Yes ED Registration Date: 06/03/19 Care time: The patient presented to the Emergency Department on the above date and was hospitalized for further evaluation of their emergent condition. - New Patient This patient is new to me today: Yes Date on this admission: 06/05/19 - Critical Care Critical Care patient: No
[2019-06-04 02:39] VITALS: BMI 16.2
[2019-06-04] MEDS: SODIUM CHLORIDE 1,000 ML IV SCH ×2 (02:47→23:45)
[2019-06-04] MEDS: POTASSIUM CHLORIDE TABS 20 MEQ TABLET.ER (FP) PO SCH ×2 (02:47→09:26)
[2019-06-04] MEDS: HEPARIN NA (PORCINE) 5,000 UNITS/ML 1ML VIAL SQ SCH ×3 (06:46→21:53)
[2019-06-04] MEDS: INSULIN (NOVOLOG) ASPART 100 UNITS/ML 10ML VIAL SQ SCH ×4 (06:47→21:45)
[2019-06-04 07:58] LABS: BASO % 0.3 % (0-2.0); EOS % 0.3 % (0-4.5); HEMATOCRIT 32.5 % (35.4-49); LYMPH % 10.4 % (8-40); MCH 35.4 pg (25.7-33.7); MCHC 33.8 g/dl (32.0-35.9); MEAN CELL VOLUME 104.7 fl (80-96); MEAN PLT VOLUME 7.8 fl (7.5-11.1); MONO % 7.5 % (3.8-10.2); NEUT % 81.5 % (42.8-82.8); PLATELET COUNT 246 K/MM3 (134-434); RDW 15.2 % (11.9-15.9); WHITE BLOOD COUNT 6.3 K/mm3 (4.0-10.8)
[2019-06-04 08:07] LABS: BILIRUBIN,TOTAL 5.3 mg/dl (0.2-1); CALCIUM 8.3 mg/dl (8.5-10); CREATININE 0.7 mg/dl (0.55-1.3); MAGNESIUM 1.9 mg/dL (1.8-2.4); PHOSPHOROUS 2.6 mg/dl (2.5-4.9); POTASSIUM 3.5 mmol/L (3.5-5.1); TOT PROT 5.9 g/dl (6.4-8.2)
[2019-06-04] MEDS: PANTOPRAZOLE 20 MG TABLET PO SCH (09:26)
[2019-06-04] MEDS: LOSARTAN POTASSIUM 50 MG TABLET (FP) PO SCH (09:26)
[2019-06-04] MEDS: POLYETHYLENE GLYCOL 3350 119 GM BTL PO SCH (09:27)
[2019-06-04] MEDS ORDERED: PATIENT'S OWN MEDICATION (NON-FORMULARY) (Losartan Potassium [Losartan Potassium] 100 MG) PO SCH (10:00)
--- NOTE | 2019-06-04 13:11 | EKG ---
Test Reason : Blood Pressure : / mmHG Vent. Rate : 048 BPM Atrial Rate : 048 BPM P-R Int : 186 ms QRS Dur : 094 ms QT Int : 522 ms P-R-T Axes : 067 059 064 degrees QTc Int : 466 ms SINUS BRADYCARDIA WITH OCCASIONAL PREMATURE VENTRICULAR COMPLEXES AND FUSION COMPLEXES SEPTAL INFARCT , AGE UNDETERMINED ABNORMAL ECG Confirmed by MAIN GUPTA MD ([id number]) on 06/04/2019 1:10:30 PM Referred By: MD MAJOR Confirmed By:MAIN GUPTA MD
[2019-06-04] MEDS ORDERED: POTASSIUM CHLORIDE TABS 20 MEQ TABLET.ER (FP) PO ONE (21:29)
--- NOTE | 2019-06-04 22:05 | PN ---
Documentation entered by Belén Davidson SCRIBE, acting as scribe for Sylvie Santacruz NP. Physical Exam: SUBJECTIVE: Patient seen and examined OBJECTIVE: Vital Signs Period Temp Pulse Resp BP Sys/Desai Pulse Ox Last 24 Hr 97.3 F-99.2 F 49-72 16-18 130-144/66-70 99-100 VGENERAL: Awake, alert, and fully oriented, in no acute distress. Thin, frail, cachectic. Temporal wasting. Protruding clavicles. Absence of body fat, loss of muscle mass. HEAD: Normal with no signs of trauma. EYES: Mildly icteric. LUNGS: Breath sounds equal, clear to auscultation bilaterally. No wheezes, and no crackles. No accessory muscle use. HEART: Regular rate and rhythm, normal S1 and S2 ABDOMEN: Soft, nontender, not distended, normoactive bowel sounds, no guarding, no rebound, no masses. No hepatomegaly or splenomegaly. MUSCULOSKELETAL: Normal range of motion at all joints. No bony deformities or tenderness. No CVA tenderness. UPPER EXTREMITIES: 2+ pulses, warm, well-perfused. No cyanosis. No clubbing. No peripheral edema. LOWER EXTREMITIES: 2+ pulses, warm, well-perfused. No calf tenderness. No peripheral edema. NEUROLOGICAL: Cranial nerves II-XII intact. Normal speech. Laboratory Results - last 24 hr 06/03/19 06/03/19 06/03/19 22:00 22:00 22:00 WBC 6.9 RBC 3.04 L Hgb 10.9 L Hct 31.8 L MCV 104.5 H MCH 35.8 H MCHC 34.3 RDW 15.3 Plt Count 251 MPV 7.3 L Absolute Neuts (auto) 5.6 Neutrophils % 81.0 Lymphocytes % 11.2 Monocytes % 7.0 Eosinophils % 0.6 Basophils % 0.2 PT with INR INR Sodium 138 Potassium 2.4 L* Chloride 107 Carbon Dioxide 25 Anion Gap 6 L BUN 7.0 Creatinine 0.6 Est GFR (CKD-EPI)AfAm 108.52 Est GFR (CKD-EPI)NonAf 93.63 POC Glucometer Random Glucose 139 H Calcium 8.4 L Phosphorus Magnesium Total Bilirubin 5.3 H Direct Bilirubin 3.5 H AST 229 H ALT 298 H Alkaline Phosphatase 711 H Total Protein 6.1 L Albumin 3.1 L Lipase Acetaminophen <10 06/03/19 06/03/19 06/04/19 22:00 22:00 06:31 WBC RBC Hgb Hct MCV MCH MCHC RDW Plt Count MPV Absolute Neuts (auto) Neutrophils % Lymphocytes % Monocytes % Eosinophils % Basophils % PT with INR 14.1 H INR 1.27 H Sodium Potassium Chloride Carbon Dioxide Anion Gap BUN Creatinine Est GFR (CKD-EPI)AfAm Est GFR (CKD-EPI)NonAf POC Glucometer 106 Random Glucose Calcium Phosphorus Magnesium Total Bilirubin Direct Bilirubin AST ALT Alkaline Phosphatase Total Protein Albumin Lipase 353 Acetaminophen 06/04/19 06/04/19 07:25 07:25 WBC 6.3 RBC 3.10 L Hgb 11.0 L Hct 32.5 L MCV 104.7 H MCH 35.4 H MCHC 33.8 RDW 15.2 Plt Count 246 MPV 7.8 Absolute Neuts (auto) 5.1 Neutrophils % 81.5 Lymphocytes % 10.4 Monocytes % 7.5 Eosinophils % 0.3 Basophils % 0.3 PT with INR INR Sodium 140 Potassium 3.5 Chloride 107 Carbon Dioxide 26 Anion Gap 7 L BUN 8.0 Creatinine 0.7 Est GFR (CKD-EPI)AfAm 101.86 Est GFR (CKD-EPI)NonAf 87.88 POC Glucometer Random Glucose 109 H Calcium 8.3 L Phosphorus 2.6 Magnesium 1.9 Total Bilirubin 5.3 H Direct Bilirubin AST 212 H ALT 288 H Alkaline Phosphatase 725 H D Total Protein 5.9 L Albumin 3.0 L Lipase Acetaminophen Active Medications Generic Name Dose Route Start Last Admin Trade Name Freq PRN Reason Stop Dose Admin Heparin Sodium (Porcine) 5,000 unit 06/04/19 06:00 06/04/19 06:46 Heparin - SQ 5,000 unit TID NATALIA Administration Sodium Chloride 1,000 mls @ 75 mls/hr 06/03/19 23:45 06/04/19 02:47 Normal Saline - IV 75 mls/hr ASDIR NATALIA Administration Insulin Aspart 1 units 06/04/19 07:00 06/04/19 06:47 Novolog Vial SQ Not Given ACHS [facility] Protocol Losartan Potassium 100 mg 06/04/19 10:00 Cozaar - PO DAILY NATALIA Pantoprazole Sodium 20 mg 06/04/19 10:00 Protonix - PO DAILY NATALIA Polyethylene Glycol 17 gm 01/17/20 10:00 Miralax (For Daily Use) - PO DAILY NATALIA Potassium Chloride 40 meq 06/04/19 03:00 06/04/19 02:47 K-Dur - PO 06/04/19 09:01 40 meq Q6H NATALIA Administration ASSESSMENT/PLAN 84 year-old male with a PMH significant for HTN, Type II NIDDM, lower GI bleeding, and renal calculi. Admitted for abnormal liver function, fatigue, weight loss. Abnormal liver function Likely pancreatic neoplastic disease --CTAP: pancreatic head/uncinate process enlargement suggestive of neoplastic disease; biliary tract obstruction; dilation of main pancreatic duct ; superior mesenteric vein occlusion; partial occlusion of splenic vein --oncology consult Hypertension --BP stable --continue losartan Type II NIDDM --Novolog sliding scale coverage Lower GI bleeding --stable --trend h/h --continue protonix Renal calculi --stable Hypokalemia --replete FEN Fluids: NS@75mL/hr Electrolytes: replete as indicated Nutrition: low sodium, diabetic DVT prophylaxis: subq heparin Physical therapy Dispo: continues to require inpatient care. Full code. 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 She is leaving on Friday to bury her mother in [place]. Wants to discuss with oncology before telling her of the diagnosis. Visit type - Emergency Visit Emergency Visit: Yes ED Registration Date: 06/03/19 Care time: The patient presented to the Emergency Department on the above date and was hospitalized for further evaluation of their emergent condition. - New Patient This patient is new to me today: No - Critical Care Critical Care patient: Yes Total Critical Care Time (in minutes): 45 Critical Care Statement: The care of this patient involved high complexity decision making to prevent further life threatening deterioration of the patient 's condition and/or to evaluate & treat vital organ system(s) failure or risk of failure. Sylvie Santacruz NP: This documentation has been prepared by the Stuart henry Maria, SCRIBE, under my direction and personally reviewed by me in its entirety. I confirm that the documentation accurately reflects all work, treatment, procedures, and medical decision making performed by me.
[2019-06-05] MEDS: INSULIN (NOVOLOG) ASPART 100 UNITS/ML 10ML VIAL SQ SCH (06:50)
[2019-06-05] MEDS: HEPARIN NA (PORCINE) 5,000 UNITS/ML 1ML VIAL SQ SCH ×3 (06:51→21:12)
[2019-06-05 08:24] LABS: BASO % 0.2 % (0-2.0); EOS % 0.2 % (0-4.5); HEMATOCRIT 29.3 % (35.4-49); HEMOGLOBIN 9.8 GM/dl (11.7-16.9); LYMPH % 13.1 % (8-40); MCH 35.3 pg (25.7-33.7); MCHC 33.5 g/dl (32.0-35.9); MEAN CELL VOLUME 105.5 fl (80-96); MEAN PLT VOLUME 7.6 fl (7.5-11.1); MONO % 7.9 % (3.8-10.2); NEUT % 78.6 % (42.8-82.8); PLATELET COUNT 235 K/MM3 (134-434); RBC 2.78 M/mm3 (4.00-5.60); RDW 15.9 % (11.9-15.9); WHITE BLOOD COUNT 5.4 K/mm3 (4.0-10.8)
[2019-06-05 08:41] LABS: ALBUMIN 2.5 g/dl (3.4-5.0); BILIRUBIN,DIRECT 2.8 mg/dL (0.0-0.2); BILIRUBIN,TOTAL 4.7 mg/dl (0.2-1); CALCIUM 7.8 mg/dl (8.5-10); CREATININE 0.6 mg/dl (0.55-1.3); MAGNESIUM 1.7 mg/dL (1.8-2.4); TOT PROT 4.9 g/dl (6.4-8.2)
[2019-06-05] MEDS: POLYETHYLENE GLYCOL 3350 119 GM BTL PO SCH (09:50)
[2019-06-05] MEDS: LOSARTAN POTASSIUM 50 MG TABLET (FP) PO SCH (09:50)
[2019-06-05] MEDS: PANTOPRAZOLE 20 MG TABLET PO SCH (10:05)
[2019-06-05] MEDS ORDERED: PT OWN MED DRAWER 7, Y5N ONE (11:40)
--- NOTE | 2019-06-05 12:21 | PN ---
Physical Exam: SUBJECTIVE: Patient seen and examined, pt c/o intermittent mild LUQ pain, denies cp[, sob, palpitations, N/V/D or urinary symptoms. OBJECTIVE: Vital Signs Period Temp Pulse Resp BP Sys/Desai Pulse Ox Last 24 Hr 97.8 F-98.5 F 63-70 18-18 118-147/56-81 97-100 GENERAL: The patient is awake, alert, and fully oriented, in no acute distress. HEAD: Normal with no signs of trauma. EYES: PERRL, extraocular movements intact, sclera anicteric, conjunctiva clear. No ptosis. ENT: Ears normal, nares patent, oropharynx clear without exudates, moist mucous membranes. NECK: Trachea midline, full range of motion, supple. LUNGS: Breath sounds equal, clear to auscultation bilaterally, no wheezes, no crackles, no accessory muscle use. HEART: Regular rate and rhythm, S1, S2 without murmur, rub or gallop. ABDOMEN: Soft, nontender, nondistended, normoactive bowel sounds, no guarding, no rebound, no hepatosplenomegaly, no masses. EXTREMITIES: 2+ pulses, warm, well-perfused, no edema. NEUROLOGICAL: Cranial nerves II through XII grossly intact. Normal speech, gait not observed. PSYCH: Normal mood, normal affect. SKIN: Warm, dry, normal turgor, no rashes or lesions noted Laboratory Results - last 24 hr 06/04/19 06/04/19 06/04/19 07:25 07:25 16:29 WBC RBC Hgb Hct MCV MCH MCHC RDW Plt Count MPV Absolute Neuts (auto) Neutrophils % Lymphocytes % Monocytes % Eosinophils % Basophils % Sodium Potassium Chloride Carbon Dioxide Anion Gap BUN Creatinine Est GFR (CKD-EPI)AfAm Est GFR (CKD-EPI)NonAf POC Glucometer 132 Random Glucose Calcium Magnesium Total Bilirubin Direct Bilirubin AST ALT Alkaline Phosphatase Total Protein Albumin Lipase 340 Hep A IgM Ab Confirm Negative Hep Bs Antigen Negative Hep B Core IgM Ab Negative Hepatitis C Ab (EIA) 0.2 06/04/19 06/05/19 06/05/19 21:34 06:48 07:20 WBC 5.4 RBC 2.78 L Hgb 9.8 L Hct 29.3 L MCV 105.5 H MCH 35.3 H MCHC 33.5 RDW 15.9 Plt Count 235 MPV 7.6 Absolute Neuts (auto) 4.3 Neutrophils % 78.6 Lymphocytes % 13.1 D Monocytes % 7.9 Eosinophils % 0.2 Basophils % 0.2 Sodium Potassium Chloride Carbon Dioxide Anion Gap BUN Creatinine Est GFR (CKD-EPI)AfAm Est GFR (CKD-EPI)NonAf POC Glucometer 135 118 Random Glucose Calcium Magnesium Total Bilirubin Direct Bilirubin AST ALT Alkaline Phosphatase Total Protein Albumin Lipase Hep A IgM Ab Confirm Hep Bs Antigen Hep B Core IgM Ab Hepatitis C Ab (EIA) 06/05/19 06/05/19 07:20 11:41 WBC RBC Hgb Hct MCV MCH MCHC RDW Plt Count MPV Absolute Neuts (auto) Neutrophils % Lymphocytes % Monocytes % Eosinophils % Basophils % Sodium 140 Potassium 4.0 Chloride 112 H Carbon Dioxide 22 Anion Gap 6 L BUN 9.0 Creatinine 0.6 Est GFR (CKD-EPI)AfAm 108.52 Est GFR (CKD-EPI)NonAf 93.63 POC Glucometer 184 Random Glucose 120 H Calcium 7.8 L Magnesium 1.7 L Total Bilirubin 4.7 H Direct Bilirubin 2.8 H AST 162 H ALT 236 H Alkaline Phosphatase 631 H D Total Protein 4.9 L Albumin 2.5 L Lipase Hep A IgM Ab Confirm Hep Bs Antigen Hep B Core IgM Ab Hepatitis C Ab (EIA) Active Medications Generic Name Dose Route Start Last Admin Trade Name Freq PRN Reason Stop Dose Admin Heparin Sodium (Porcine) 5,000 unit 06/04/19 06:00 06/05/19 06:51 Heparin - SQ 5,000 unit TID NATALIA Administration Sodium Chloride 1,000 mls @ 75 mls/hr 06/03/19 23:45 06/04/19 23:45 Normal Saline - IV 75 mls/hr ASDIR NATALIA Administration Insulin Aspart 1 units 06/04/19 07:00 06/05/19 06:50 Novolog Vial SQ Not Given ACHS NATALIA Protocol Losartan Potassium 100 mg 06/04/19 10:00 06/05/19 09:50 Cozaar - PO 100 mg DAILY NATALIA Administration Pantoprazole Sodium 20 mg 06/04/19 10:00 06/04/19 09:26 Protonix - PO 20 mg DAILY NATALIA Administration Polyethylene Glycol 17 gm 06/04/19 10:00 06/05/19 09:50 Miralax (For Daily Use) - PO 17 grams DAILY NATLAIA Administration CxR: No acute lung pathology CT Chest: Mod COPD with apical lung nodule CT abdomen/ pelvis: pancreatic head /uncinate process enlargement is noted which suggestive of neoplastic disease, biliary tract obstruction, pancreatic ductal dilatation, partial splenic vein obstruction and small amount ascites. ASSESSMENT/PLAN: 84 year old male with a significant PMH of HTN, migraines, T2DM, lower GI bleed and anemia who presents to the emergency department from Dr. Oates office for abnormal lab results ( LFT's),30 lbs weight loss in 4 months. PCP: Dr. Hickman, [employer] Analyst * Abnomral LFT's/ hypokalemia - Imaging CT chest / abdomen/ pelvis: reviewed - s/p K Dur - Rpt K - WNL - LFT's remains elevated - Lipase- WNL - Onc Dr. Ochoa consulted -GI Dr. Marr consulted ( spoke with covering physician) - Cea and ca19-9 ordered * HTN- BP stable - will cont on home dose Cozaar - will hold Norvasc for as BP controlled * DM - Insulin sliding scale and Lantus - FS AC & HS * Migraines - takes Buspropion ?30 mg PRN * Anemia - ? dilutional - no overt signs of bleeding noted - Will check stool OB, Fe studies * VTE: Heparin SQ F/E/N: Diabetic diet Replace electrolyte as needed Visit type - Emergency Visit Emergency Visit: Yes ED Registration Date: 06/03/19 Care time: The patient presented to the Emergency Department on the above date and was hospitalized for further evaluation of their emergent condition. - New Patient This patient is new to me today: Yes Date on this admission: 06/06/19 - Critical Care Critical Care patient: No
[2019-06-05 14:50] LABS: LDH 250 U/L (84-246)
[2019-06-05 16:48] LABS: IRON SERUM 95 ug/dL (50-175); TOTAL IRON BINDING CAPACITY 137 ug/dL (250-450)
[2019-06-05] MEDS: INSULIN SLIDING SCALE (NOVOLOG) 1 VIAL SQ SCH ×2 (16:51→21:13)
[2019-06-05] MEDS ORDERED: INSULIN (LEVEMIR) 100 UNITS/ML UNITS SQ SCH (22:00)
[2019-06-06] MEDS: HEPARIN NA (PORCINE) 5,000 UNITS/ML 1ML VIAL SQ SCH ×3 (06:21→21:36)
[2019-06-06] MEDS: INSULIN SLIDING SCALE (NOVOLOG) 1 VIAL SQ SCH ×3 (06:21→20:59)
[2019-06-06] MEDS ORDERED: DEXTROSE 50%-WATER - 25 GM/50 ML VIAL IVPUSH ONE (07:16)
[2019-06-06 09:05] LABS: BASO % 0.3 % (0-2.0); EOS % 0.1 % (0-4.5); HEMATOCRIT 30.1 % (35.4-49); HEMOGLOBIN 9.9 GM/dl (11.7-16.9); LYMPH % 13.1 % (8-40); MCH 34.6 pg (25.7-33.7); MCHC 32.8 g/dl (32.0-35.9); MEAN PLT VOLUME 7.9 fl (7.5-11.1); MONO % 8.1 % (3.8-10.2); NEUT % 78.4 % (42.8-82.8); PLATELET COUNT 280 K/MM3 (134-434); RBC 2.86 M/mm3 (4.00-5.60); RDW 15.5 % (11.9-15.9); WHITE BLOOD COUNT 7.1 K/mm3 (4.0-10.8)
[2019-06-06 09:09] LABS: MEAN CELL VOLUME 105.4 fl (80-96)
[2019-06-06] MEDS: LOSARTAN POTASSIUM 50 MG TABLET (FP) PO SCH (09:26)
[2019-06-06] MEDS: POLYETHYLENE GLYCOL 3350 119 GM BTL PO SCH (09:26)
[2019-06-06] MEDS: PANTOPRAZOLE 20 MG TABLET PO SCH (09:26)
[2019-06-06 09:30] LABS: ALBUMIN 2.7 g/dl (3.4-5.0); BILIRUBIN,TOTAL 5.2 mg/dl (0.2-1); CREATININE 0.5 mg/dl (0.55-1.3); TOT PROT 5.4 g/dl (6.4-8.2)
[2019-06-06] MEDS ORDERED: POTASSIUM CHLORIDE TABS 20 MEQ TABLET.ER (FP) PO ONE ×2 (10:00→14:00)
--- NOTE | 2019-06-06 10:03 | PN ---
Physical Exam: SUBJECTIVE: Patient seen and examined at bedside, reports gen weakness, no other complains. OBJECTIVE: Vital Signs Period Temp Pulse Resp BP Sys/Desai Pulse Ox Last 24 Hr 97.9 F-98.2 F 62-106 17-19 121-150/58-72 98-100 GENERAL: The patient is awake, alert, and fully oriented, in no acute distress. HEAD: Normal with no signs of trauma. EYES: PERRL, extraocular movements intact, sclera anicteric, conjunctiva clear. No ptosis. ENT: Ears normal, nares patent, oropharynx clear without exudates, moist mucous membranes. NECK: Trachea midline, full range of motion, supple. LUNGS: Breath sounds equal, clear to auscultation bilaterally, no wheezes, no crackles, no accessory muscle use. HEART: Regular rate and rhythm, S1, S2 without murmur, rub or gallop. ABDOMEN: Soft, nontender, nondistended, normoactive bowel sounds, no guarding, no rebound, no hepatosplenomegaly, no masses. EXTREMITIES: 2+ pulses, warm, well-perfused, no edema. NEUROLOGICAL: Cranial nerves II through XII grossly intact. Normal speech, gait not observed. PSYCH: Normal mood, normal affect. SKIN: Warm, dry, normal turgor, no rashes or lesions noted Laboratory Results - last 24 hr 06/05/19 06/05/19 06/05/19 07:20 07:20 11:41 WBC RBC Hgb Hct MCV MCH MCHC RDW Plt Count MPV Absolute Neuts (auto) Neutrophils % Lymphocytes % Monocytes % Eosinophils % Basophils % Haptoglobin 206 Sodium Potassium Chloride Carbon Dioxide Anion Gap BUN Creatinine Est GFR (CKD-EPI)AfAm Est GFR (CKD-EPI)NonAf POC Glucometer 184 Random Glucose Calcium Iron 95 TIBC 137 L Iron Saturation 69 H Unsaturated IBC 42 L Total Bilirubin AST ALT Alkaline Phosphatase LD Total 250 H Total Protein Albumin Vitamin B12 5017 H 06/05/19 06/05/19 06/06/19 16:47 20:55 06:00 WBC 7.1 RBC 2.86 L Hgb 9.9 L Hct 30.1 L MCV 105.4 H MCH 34.6 H MCHC 32.8 RDW 15.5 Plt Count 280 MPV 7.9 Absolute Neuts (auto) 5.6 Neutrophils % 78.4 Lymphocytes % 13.1 Monocytes % 8.1 Eosinophils % 0.1 Basophils % 0.3 Haptoglobin Sodium Potassium Chloride Carbon Dioxide Anion Gap BUN Creatinine Est GFR (CKD-EPI)AfAm Est GFR (CKD-EPI)NonAf POC Glucometer 108 182 Random Glucose Calcium Iron TIBC Iron Saturation Unsaturated IBC Total Bilirubin AST ALT Alkaline Phosphatase LD Total Total Protein Albumin Vitamin B12 06/06/19 06/06/19 06/06/19 06:17 06:18 06:43 WBC RBC Hgb Hct MCV MCH MCHC RDW Plt Count MPV Absolute Neuts (auto) Neutrophils % Lymphocytes % Monocytes % Eosinophils % Basophils % Haptoglobin Sodium Potassium Chloride Carbon Dioxide Anion Gap BUN Creatinine Est GFR (CKD-EPI)AfAm Est GFR (CKD-EPI)NonAf POC Glucometer 42 43 48 Random Glucose Calcium Iron TIBC Iron Saturation Unsaturated IBC Total Bilirubin AST ALT Alkaline Phosphatase LD Total Total Protein Albumin Vitamin B12 06/06/19 06/06/19 08:56 09:16 WBC RBC Hgb Hct MCV MCH MCHC RDW Plt Count MPV Absolute Neuts (auto) Neutrophils % Lymphocytes % Monocytes % Eosinophils % Basophils % Haptoglobin Sodium 139 Potassium 3.0 L Chloride 107 Carbon Dioxide 23 Anion Gap 9 BUN 6.0 L Creatinine 0.5 L Est GFR (CKD-EPI)AfAm 116.97 Est GFR (CKD-EPI)NonAf 100.92 POC Glucometer 178 Random Glucose 46 L* Calcium 8.0 L Iron TIBC Iron Saturation Unsaturated IBC Total Bilirubin 5.2 H AST 250 H ALT 281 H Alkaline Phosphatase 667 H D LD Total Total Protein 5.4 L Albumin 2.7 L Vitamin B12 Active Medications Generic Name Dose Route Start Last Admin Trade Name Freq PRN Reason Stop Dose Admin Heparin Sodium (Porcine) 5,000 unit 06/04/19 06:00 06/06/19 06:21 Heparin - SQ 5,000 unit TID NATALIA Administration Insulin Detemir 14 units 06/05/19 22:00 06/05/19 21:12 Levemir Vial SQ 14 units HS NATALIA Administration Losartan Potassium 100 mg 06/04/19 10:00 06/06/19 09:26 Cozaar - PO 100 mg DAILY NATALIA Administration Pantoprazole Sodium 20 mg 06/04/19 10:00 06/06/19 09:26 Protonix - PO 20 mg DAILY NATALIA Administration Polyethylene Glycol 17 gm 06/04/19 10:00 06/06/19 09:26 Miralax (For Daily Use) - PO Not Given DAILY NATALIA * IMAGING CxR: No acute lung pathology CT Chest: Mod COPD with apical lung nodule CT abdomen/ pelvis: pancreatic head /uncinate process enlargement is noted which suggestive of neoplastic disease, biliary tract obstruction, pancreatic ductal dilatation, partial splenic vein obstruction and small amount ascites. ASSESSMENT/PLAN: 84 year old male with a significant PMH of HTN, migraines, T2DM, lower GI bleed and anemia who presents to the emergency department from Dr. Oates office for abnormal lab results ( LFT's),30 lbs weight loss in 4 months. PCP: Dr. Hickman, [employer] Specialist GI Dr. Gutierres * Abnomral LFT's/ hypokalemia - Imaging CT chest / abdomen/ pelvis: reviewed - s/p K Dur - Rpt K - 3 today , will replace K - LFT's remains elevated - Lipase- WNL - Onc Dr. Ochoa consulted, seen pt, rec out pt w followup and w/u - Spoke with GI covering for Dr. Gutierres, discussed CT scan report, rec out pt f/u and w/u this week - Cea and ca19-9 ordered, pending * HTN- BP stable - will cont on home dose Cozaar - will hold Norvasc for as BP controlled * DM- BS low, likley due to poor PO intake - will cont on Insulin sliding scale - will hold off home dose Lantus and monitor - FS AC & HS * Migraines - takes Buspropion ?30 mg PRN * Anemia - ? dilutional - no overt signs of bleeding noted - Will check stool OB -Fe studies reviewed, not consistent with Fe deficiency anemia - B12 elevated , will check Folate * VTE: Heparin SQ F/E/N: Diabetic diet Replace electrolyte as needed , mg and K replaced. code status: Full Updated plan of care with at bedside, not comfortable taking pt home today. DC home in AM with out pt f/u. Visit type - Emergency Visit Emergency Visit: Yes ED Registration Date: 06/03/19 Care time: The patient presented to the Emergency Department on the above date and was hospitalized for further evaluation of their emergent condition. - New Patient This patient is new to me today: No - Critical Care Critical Care patient: No
[2019-06-06] MEDS ORDERED: MAGNESIUM SULF 50% (8.12 MEQ/2 ML-1 GM VIAL) IVPB ONE (12:00)
--- NOTE | 2019-06-06 19:38 | CONSULT ---
Consult Consult Specialty:: onc Reason for Consultation:: assesss for patrick - History of Present Illness Chief Complaint: 84yom ref for admission for w/u of abnl labs from endocrinologists office History of Present Illness: adm w abnl lfts. pt notes unintentional wt loss of approx 30# over past yr. Denies change in bowel habits or pain. imaging noteworthy for hop enlargement, IH, EH osvaldo dil, distended gb, mesenteric infiltration - History Source History Provided By: Patient, Medical Record - Past Medical History Cardio/Vascular: Yes: HTN Gastrointestinal: Yes: Constipation, GI Bleed Renal/: Yes: BPH, Renal Calculi Endocrine: Yes: Diabetes Mellitus Additional Medical History: Migraines - Past Surgical History Past Surgical History: Yes: None - Alcohol/Substance Use Hx Alcohol Use: No 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, Heroin - Smoking History Smoking history: Former smoker Have you smoked in the past 12 months: No Aproximately how many cigarettes per day: 0 If you are a former smoker, when did you quit?: 50 YRS AGO - Social History Usual Living Arrangement: With Spouse ADL: Independent 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 History of Recent Travel: No Home Medications - Allergies Allergies/Adverse Reactions: Allergies Allergy/AdvReac Type Severity Reaction Status Date / Time No Known Allergies Allergy Verified 09/28/18 00:58 - Home Medications Home Medications: Ambulatory Orders Losartan Potassium 100 mg PO DAILY 09/04/14 Amlodipine Besylate 5 mg PO HS 06/04/19 Bupropion HCl 06/04/19 Insulin Glargine,Hum.rec.anlog [Arturo Hewitt] 14 unit SQ HS 06/04/19 Polyethylene Glycol 3350 17 gm PO PRN PRN 06/04/19 Family Medical History Family Hx Cancer: Mother Review of Systems - Review of Systems Constitutional: reports: Loss of Appetite, Unintentional Wgt. Loss Physical Exam Vital Signs: Vital Signs Temperature 98.0 F 06/06/19 18:00 Pulse Rate 70 06/06/19 18:00 Respiratory Rate 18 06/06/19 18:00 Blood Pressure 132/70 06/06/19 18:00 O2 Sat by Pulse Oximetry (%) 100 06/06/19 18:00 Constitutional: Yes: Other (chronically ill-appearing) Eyes: Yes: Sclera Icterus Neck: Yes: Supple Cardiovascular: Yes: Regular Rate and Rhythm Respiratory: Yes: CTA Bilaterally Gastrointestinal: Yes: Soft, Other (nt,nd, no palp om) Extremities: Yes: WNL Edema: No Labs: CBC, BMP 06/06/19 06:00 06/06/19 09:16 Assessment/Plan 84 yom w painless obstructive jaundice imaging concerning for panc-osvaldo malig will need further imaging/bx for dx have d/w team and pt. plan is for w/u w his primary procurement analyst outpt this week can f/u w me in office once complete also has macrocytic anemia; non-b12/non-fa def; no evid hemolysis. marrow process? f/u as outpt
[2019-06-07] MEDS: HEPARIN NA (PORCINE) 5,000 UNITS/ML 1ML VIAL SQ SCH (06:46)
[2019-06-07 08:49] LABS: CALCIUM 7.9 mg/dl (8.5-10); POTASSIUM 3.9 mmol/L (3.5-5.1)
[2019-06-07 08:58] LABS: ALBUMIN 2.6 g/dl (3.4-5.0); BILIRUBIN,TOTAL 4.9 mg/dl (0.2-1); CREATININE 0.5 mg/dl (0.55-1.3); MAGNESIUM 1.7 mg/dL (1.8-2.4)
[2019-06-07] MEDS: POLYETHYLENE GLYCOL 3350 119 GM BTL PO SCH (10:04)
[2019-06-07] MEDS: LOSARTAN POTASSIUM 50 MG TABLET (FP) PO SCH (10:04)
[2019-06-07] MEDS: PANTOPRAZOLE 20 MG TABLET PO SCH (10:04)
[2019-06-07 12:54] VITALS: BP 130/66; PULSE 66; TEMP 98.6
--- NOTE | 2019-06-10 09:05 | HOSP ---
Subjective - Review of Symptoms Events since last encounter: On 06/06/19, Mr. Pritchett left the hospital against medical advice. There were, however, exigent circumstances, and but for these circumstances patient would not have left AMA. The patient was scheduled for discharge that day but the attending hospitalist doctor did not round at the hospital until late afternoon. 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 She had to get the patient home and settled before leaving for the airport. She had no option other than to sign the patient out against AMA. But for this unfortunate timing, patient would have been discharged and visiting nurse services would have been in place. Physical Examination Vital Signs: Vital Signs Temperature 98.6 F 06/07/19 10:00 Pulse Rate 66 06/07/19 10:00 Respiratory Rate 18 06/07/19 10:00 Blood Pressure 130/66 06/07/19 10:00 O2 Sat by Pulse Oximetry (%) 97 06/07/19 09:00 Labs: CBC, BMP 06/06/19 06:00 06/07/19 07:15
== END 2019-06-07 13:00 | disposition left against medical advice (07) | DRG 374 ==
LOC: FER 20:15 → FM/S 23:11 → UNDOADMIN 06-04 00:13
PROVIDERS: ADMIT Internal Medicine
DX: D49.0 Neoplasm of unspecified behavior of digestive system (principal); K83.1 Obstruction of bile duct; I10 Essential (primary) hypertension; G43.909 Migraine, unspecified, not intractable, without status migrainosus; E11.9 Type 2 diabetes mellitus without complications; D64.9 Anemia, unspecified; Z79.84 Long term (current) use of oral hypoglycemic drugs; Z87.891 Personal history of nicotine dependence; E87.6 Hypokalemia; R63.4 Abnormal weight loss; K64.8 Other hemorrhoids; F14.10 Cocaine abuse, uncomplicated; N20.0 Calculus of kidney
CPT/HCPCS: 36415; 71046-TC-FY; 71250-TC; 74176-TC; 74177-TC; 80048; 80053; 80074; 80076; 80307; 82248; 82607; 82746; 82962; 83010; 83540; 83550; 83615; 83690; 83735; 84100; 85025; 85610; 86301; 86304; 93005; 99283-25; J1644; J7030; Q9967

== ENCOUNTER 2019-06-13 09:48 | Inpatient (IN) | payer OTHER ==
[2019-06-13] MEDS ORDERED: DEXTROSE 50%-WATER - 25 GM/50 ML VIAL IVPUSH ONE (10:03)
[2019-06-13] MEDS ORDERED: DEXTROSE 50%-WATER - 25 GM/50 ML VIAL ONE (10:04)
[2019-06-13 11:18] LABS: BASO % 0.1 % (0-2.0); EOS % 0.2 % (0-4.5); HEMATOCRIT 35.8 % (35.4-49); HEMOGLOBIN 12.2 GM/dL (11.7-16.9); LYMPH % 6.6 % (8-40); MCH 35.9 pg (25.7-33.7); MEAN CELL VOLUME 105.6 fl (80-96); MEAN PLT VOLUME 7.9 fl (7.5-11.1); MONO % 6.2 % (3.8-10.2); NEUT % 86.9 % (42.8-82.8); PLATELET COUNT 356 K/MM3 (134-434); RBC 3.39 M/mm3 (4.00-5.60); WHITE BLOOD COUNT 5.2 K/mm3 (4.0-10.0)
[2019-06-13 11:19] LABS: URINE APPEARANCE Clear; URINE BILIRUBIN 3+ (NEGATIVE); URINE COLOR Yellow; URINE GLUCOSE (UA) 1+ (NEGATIVE); URINE KETONE Negative (NEGATIVE); URINE LEUK ESTERASE Negative (NEGATIVE); URINE NITRITE Negative (NEGATIVE); URINE PROTEIN 2+ (NEGATIVE); URINE UROBILINOGEN 0.2 mg/dL (0.2-1.0)
[2019-06-13 11:26] LABS: INR 1.03 (0.83-1.09); PROTHROMBIN TIME (PATIENT) 12.2 SEC (9.7-13.0)
[2019-06-13 11:29] LABS: ACTIVATED PTT 37.2 SECONDS (25.2-36.5)
--- NOTE | 2019-06-13 11:30 | PDOC ---
History of Present Illness - General Chief Complaint: Blood Sugar Problem Stated Complaint: HIGH BLOOD PRESSURE Time Seen by Provider: 06/13/19 10:03 - History of Present Illness Initial Comments: Lucas Pritchett is an 84yo man with a PMH of HTN, migraine, DM, anemia, recent admission at [facility] for elevated LFT's, elevated bili, weight loss with imaging suspicious for pancreatic/biliary malignancy. He presents today with hypoglycemia to 35 at home today. Mr Pritchett states that he does not remember anything that occurred. According to his , she has been out of town since several hours after he left the hospital on 06/07 and got home last night. He had a visiting nurse throughout the week. His checked the pt's vitals and glucose at home last night, but this morning she noted that he was mumbling and acting strangly when he woke. She checked his BP, which was slightly high, and then his glucose, which she states was 35. She gave him juice mixed with 3T of table sugar, but his glucose did not improve. She then called EMS, who additionally gave glucose. On arrival, Mr Pritchett's blood sugar was still in the 60's. His additionally reports that his appetite has been poor recently, and she is not sure how much he has been eating while she was out of town. He was started on insulin while in the hospital recently; previously he managed his blood sugars with PO medications but his DM was only diagnosed in February. Past History - Past Medical History Allergies/Adverse Reactions: Allergies Allergy/AdvReac Type Severity Reaction Status Date / Time No Known Allergies Allergy Verified 06/13/19 10:34 Home Medications: Ambulatory Orders Losartan Potassium 100 mg PO DAILY 09/04/14 Amlodipine Besylate 5 mg PO HS 06/04/19 Insulin Glargine,Hum.rec.anlog [Arturo Hewitt] 14 unit SQ HS 06/04/19 Polyethylene Glycol 3350 17 gm PO PRN PRN 06/04/19 Butalb/Acetaminophen/Caffeine [Izdpuj-Hfihcrko-Skfg 50-325-40] 1 each PO TID COPD: No Diabetes: Yes GI Disorders: Yes (GI BLEED,Colitis) HTN: Yes - Immunization History Immunization Up to Date: Yes - Psycho Social/Smoking Cessation Hx Smoking History: Never smoked Have you smoked in the past 12 months: No Number of Cigarettes Smoked Daily: 0 If you are a former smoker, when did you quit?: 50 YRS AGO Information on smoking cessation initiated: No Hx Alcohol Use: Yes (Have not used in "many years") Drug/Substance Use Hx: Yes (last used "many years ago") Substance Use Type: None Review of Systems - Review of Systems Comments:: General: No fevers, no chills, + weight loss, + poor appetite, no malaise HEENT: No changes in vision, no changes in hearing, no congestion, no sore throat CV: No chest pain, no palpitations, no LE edema Pulm: No SOB, no cough, no wheezing GI: No nausea or vomiting, +frequent loose stools, no melena : No frequency, no urgency, no dysuria. +dark urine Musc: No back pain, no joint swelling, no recent injury Skin: No rash, no lesions, no erythema Endo: No excessive thirst, no heat/cold intolerance Heme: No unusual bruising or bleeding, no swollen glands Neuro: No syncope, no numbness/tingling, no focal weakness Vasc: No claudication Psych: No recent change in mood, no SI or HI *Physical Exam - Vital Signs Last Vital Signs Temp Pulse Resp BP Pulse Ox 97.2 F L 50 L 16 133/72 100 06/13/19 10:36 06/13/19 10:36 06/13/19 10:36 06/13/19 10:36 06/13/19 10:36 - Physical Exam General: No acute distress. Cachectic w/ temporal wasting HEENT: Atraumatic, PERRL, EOMI, no scleral icterus, MMM, voice normal, normal neck ROM Cards: RRR, no murmur appreciated Pulm: Comfortable on room air, clear to auscultation bilaterally Abd: Soft, Mild upper abd tenderness, nondistended Ext: Atraumatic. No LE edema. ROM intact. WWP Skin: Jaundiced, no rashes or lesions Neuro: A&Ox3, CN grossly intact, normal speech, motor/sensory grossly intact and symmetric Psych: Mood appropriate to situation ED Treatment Course - LABORATORY CBC & Chemistry Diagram: 06/13/19 10:42 06/13/19 10:42 - ADDITIONAL ORDERS Additional order review: Laboratory Results 06/13/19 06/13/19 10:57 10:02 POC Glucometer 169 60 06/13/19 06/13/19 10:57 10:02 POC Glucometer 169 60 - Medications Given in the ED: ED Medications Discontinued Medications Generic Name Dose Route Start Last Admin Trade Name Mary Ann PRN Reason Stop Dose Admin Dextrose 25 gm 06/13/19 10:03 06/13/19 10:45 D50w (Vial) - IVPUSH 06/13/19 10:04 25 gm NOW ONE Administration Medical Decision Making - Medical Decision Making 06/13/19 11:18 Lucas Pritchett is an 84yo man with a PMH of HTN, migraine, IDDM, anemia, recent admission at [facility] for elevated LFT's, elevated bili, weight loss with imaging suspicious for pancreatic/biliary malignancy who presents with hypoglycemia at home this morning to 35. - Hypoglycemia likely secondary to new use of insulin, poor PO intake. reports he has a poor appetite at baseline, and she was out of town recently and unaware of his intake - D50 given for hypoglycemia on arrival - CBC, CMP, coags, UA - Urine noted to be tea-colored. Urine culture added. Per his , urine was not dark when she went out of down last week - Pt noted to be walking to the bathroom frequently since arrival. His notes that he has been having frequent stools for months. 06/13/19 11:40 - Most recent fingerstick 169. Will monitor - UA w/ 3+ bili 06/13/19 12:10 - Labs reviewed. Notable for marked increases in alk phos (612 -> over 1000) and tbili (4.9 -> 7.5) - Will send for abd US for additional evaluation - Call to Dr Hickman for admission 06/13/19 12:50 - Pt endorsed to Dr Peterson. Will admit for additional management. - GI consult placed per request of primary team Discussed with Dr Susana Christine PGY2 Discharge - Discharge Information Problems reviewed: Yes Clinical Impression/Diagnosis: Elevated liver enzymes, Hyperbilirubinemia, Hypoglycemia Condition: Fair - Admission Yes - Follow up/Referral - Patient Discharge Instructions - Post Discharge Activity
--- NOTE | 2019-06-13 11:41 | PDOC ---
Attending Attestation - Resident Resident Name: EmmettPortia - ED Attending Attestation I have performed the following: I have examined & evaluated the patient, The case was reviewed & discussed with the resident, I agree w/resident's findings & plan - HPI HPI: 06/13/19 11:41 84 year-old male with a PMH significant for HTN, Type II NIDDM, Lower GI bleed x 2 (suspected diverticular bleed 2012, hemorrhoidal bleed 2014), anemia, renal calculi, BPH, Migraines, diverticulosis, hemorrhoids, antral erosions, remote heroin/cocaine abuse, BIB EMS presenting with hypoglycemia/AMS, mumbling/not making any sense this morning. found to be hypoglycemic to 30s, given oral glucose and improved to 60s. Recently started workup and concern for metastatic pancreatic ca with painless obstructive jaundice requiring further workup/biopsy Recently admitted last week at for transaminitis Chronic diarrhea - Physicial Exam PE: 06/13/19 11:41 Agree with the resident's HPI and PE as documented in the electronic medical record. Cachectic, +protestant wasting bilaterally, EOMI, PERRL, pale conjunctiva, icteric; neck supple. lungs clear, RRR, abdomen soft nontender. No rebound, no guarding. Back nontender. GAMBOA x4, no focal neuro deficits. No peripheral edema. normal color for ethnicity, WWP. - Medical Decision Making 06/13/19 11:41 Vital Signs Temp Pulse Resp BP Pulse Ox 97.2 F L 50 L 16 133/72 100 06/13/19 10:36 06/13/19 10:36 06/13/19 10:36 06/13/19 10:36 06/13/19 10:36 VS reviewed wnl. reassuring cachectic appearing basic labs and lytes worsening LFTs/bili concern for obstructive jaundice from pancreatic malignancy requiring more workup FTT/dehydrated glucose has been normalizing, given hydration and dextrose, no recurrence admit to hospitalist service for further management, GI eval, FTT and supportive care. 06/13/19 17:49 Heart Score/ECG Review #1 ECG reviewed & interpreted by me at: 11:25 General ECG Interpretation: Sinus Rhythm, Normal Intervals Compared to previous ECG there are: No significant change 06/13/19 11:41 sinus bradycardia 42 bpm
[2019-06-13 11:51] LABS: ALK PHOS > 1000 U/L (45-117); ANION GAP 4 MMOL/L (8-16); BILIRUBIN,TOTAL 7.5 mg/dL (0.2-1); BLOOD UREA NITROGEN 8.4 mg/dL (7-18); CALCIUM 8.9 mg/dL (8.5-10.1); CHLORIDE 104 mmol/L (98-107); CO2 30 mmol/L (21-32); GLUCOSE,RANDOM 98 mg/dL (74-106); POTASSIUM 4.9 mmol/L (3.5-5.1); SGOT/AST 206 U/L (15-37); SGPT/ALT 315 U/L (13-61); SODIUM 138 mmol/L (136-145); TOT PROT 6.9 g/dl (6.4-8.2)
[2019-06-13 11:58] LABS: EPI CELLS 0.6 /HPF (0-5/HPF); HYALINE CASTS 8.56 /lpf (0-8); URINE BACTERIA 0.5 /hpf (NEGATIVE); URINE CRYSTALS FEW /hpf; URINE RBC 1.4 /hpf (0-4); URINE WBC 1.5 /hpf (0-5)
[2019-06-13 12:39] LABS: AMYLASE 224 U/L (25-115); LIPASE 1043 U/L (73-393)
[2019-06-13 13:13] LABS: MACROCYTOSIS 1+; OVALOCYTE 1+
[2019-06-13 13:14] LABS: PLATELET ESTIMATE ADEQUATE
[2019-06-13] MEDS ORDERED: POLYETHYLENE GLYCOL 3350 119 GM BTL PO PRN (13:48)
[2019-06-13] MEDS ORDERED: D5-1/2NS+10 MEQ KCL - 10 MEQ/1,000 ML INFUS.BAG IV SCH (14:00)
--- NOTE | 2019-06-13 14:07 | HP ---
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 History Source: Patient, Family Member - Past Medical History Cardiovascular: Yes: HTN Gastrointestinal: Yes: Constipation, GI Bleed Renal/: Yes: BPH, Renal Calculi Heme/Onc: Yes: Anemia Endocrine: Yes: Diabetes Mellitus - Past Surgical History Past Surgical History: Yes: None - Smoking History Smoking history: Never smoked Have you smoked in the past 12 months: No Aproximately how many cigarettes per day: 0 If you are a former smoker, when did you quit?: 50 YRS AGO - Alcohol/Substance Use Hx Alcohol Use: Yes (Have not used in "many years") 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, Heroin - Social History ADL: Independent 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 History of Recent Travel: No Home Medications - Allergies Allergies/Adverse Reactions: Allergies Allergy/AdvReac Type Severity Reaction Status Date / Time No Known Allergies Allergy Verified 06/13/19 10:34 - Home Medications Home Medications: Ambulatory Orders Losartan Potassium 100 mg PO DAILY 09/04/14 Amlodipine Besylate 5 mg PO HS 06/04/19 Insulin Glargine,Hum.rec.anlog [Arturo Hewitt] 14 unit SQ HS 06/04/19 Polyethylene Glycol 3350 17 gm PO PRN PRN 06/04/19 Butalb/Acetaminophen/Caffeine [Ubgjjr-Ygfudils-Ivwf 50-325-40] 1 each PO TID Review of Systems - Review of Systems Constitutional: reports: Lethargy, Loss of Appetite. denies: Chills, Diaphoresis, Fever Eyes: denies: Blind Spots, Blurred Vision, Double Vision HENT: denies: Difficult Swallowing, Ear Discharge, Ear Pain, Epistaxis Neck: denies: Decreased ROM, Lumps, Pain on Movement Cardiovascular: denies: Chest Pain, Edema, Palpitations Respiratory: denies: Cough, Exercise Intolerance Gastrointestinal: reports: Diarrhea. denies: Abdominal Pain, Bloating, Constipation, Melena, Nausea, Rectal Bleeding Genitourinary: denies: Discharge, Dysuria, Flank Pain Musculoskeletal: denies: Crepitus, Decreased ROM Integumentary: denies: Bruising, Change in Color, Eczema Neurological: reports: Confusion. 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 Non Focal Labs: WBC 5.2 K/mm3 (4.0-10.0) 06/13/19 10:42 RBC 3.39 M/mm3 (4.00-5.60) L 06/13/19 10:42 Hgb 12.2 GM/dL (11.7-16.9) 06/13/19 10:42 Hct 35.8 % (35.4-49) 06/13/19 10:42 MCV 105.6 fl (80-96) H 06/13/19 10:42 MCH 35.9 pg (25.7-33.7) H 06/13/19 10:42 MCHC 34.0 g/dl (32.0-35.9) 06/13/19 10:42 RDW 17.0 % (11.9-15.9) H 06/13/19 10:42 Plt Count 356 K/MM3 (134-434) D 06/13/19 10:42 MPV 7.9 fl (7.5-11.1) 06/13/19 10:42 Absolute Neuts (auto) 4.5 K/mm3 (1.5-8.0) 06/13/19 10:42 Neutrophils % 86.9 % (42.8-82.8) H 06/13/19 10:42 Lymphocytes % 6.6 % (8-40) L D 06/13/19 10:42 Monocytes % 6.2 % (3.8-10.2) 06/13/19 10:42 Eosinophils % 0.2 % (0-4.5) 06/13/19 10:42 Basophils % 0.1 % (0-2.0) 06/13/19 10:42 Nucleated RBC % 0 % (0-0) 06/13/19 10:42 Platelet Estimate Adequate 06/13/19 10:42 Polychromasia 1+ 06/13/19 10:42 Macrocytosis 1+ 06/13/19 10:42 Spherocytes 1+ 06/13/19 10:42 Ovalocytes 1+ 06/13/19 10:42 Sodium 138 mmol/L (136-145) 06/13/19 10:42 Potassium 4.9 mmol/L (3.5-5.1) 06/13/19 10:42 Chloride 104 mmol/L (98-107) 06/13/19 10:42 Carbon Dioxide 30 mmol/L (21-32) 06/13/19 10:42 Anion Gap 4 MMOL/L (8-16) L 06/13/19 10:42 BUN 8.4 mg/dL (7-18) 06/13/19 10:42 Creatinine 1.0 mg/dL (0.55-1.3) 06/13/19 10:42 Est GFR (CKD-EPI)AfAm 80.88 06/13/19 10:42 Est GFR (CKD-EPI)NonAf 69.78 06/13/19 10:42 POC Glucometer 169 UNITS (80-120) 06/13/19 10:57 Random Glucose 98 mg/dL (74-106) 06/13/19 10:42 Calcium 8.9 mg/dL (8.5-10.1) 06/13/19 10:42 Total Bilirubin 7.5 mg/dL (0.2-1) H 06/13/19 10:42 AST 206 U/L (15-37) H 06/13/19 10:42 ALT 315 U/L (13-61) H 06/13/19 10:42 Alkaline Phosphatase > 1000 U/L (45-117) H 06/13/19 10:42 Total Protein 6.9 g/dl (6.4-8.2) 06/13/19 10:42 Albumin 3.0 g/dl (3.4-5.0) L 06/13/19 10:42 Total Amylase 224 U/L (25-115) H 06/13/19 10:42 Lipase 1043 U/L (73-393) H 06/13/19 10:42 EKG: CT Chest: Imaging - Results Cat Scan: Report Reviewed (CT abd:) Problem List - Problems (1) Altered mental state Assessment/Plan: Due to Hypoglycemia improved cont D5 infusion F/U FS q 2 hrs once stable Can be switch to q 4 hrs Regular Diet Problems reviewed: Yes Code(s): R41.82 - ALTERED MENTAL STATUS, UNSPECIFIED (2) Obstructive jaundice due to malignant neoplasm Assessment/Plan: Most likely pancreatic mass/Billairy malignancy needs evaluation by GI, MRCP, CEA 19.9 malignancy w/u and possible Biospy Problems reviewed: Yes Code(s): K83.1 - OBSTRUCTION OF BILE DUCT; C80.1 - MALIGNANT (PRIMARY) NEOPLASM , UNSPECIFIED (3) Elevated lipase Assessment/Plan: Due to Neoplasm Problems reviewed: Yes Code(s): R74.8 - ABNORMAL LEVELS OF OTHER SERUM ENZYMES (4) HTN (hypertension) Assessment/Plan: Cont amlodipine and losartan Problems reviewed: Yes Code(s): I10 - ESSENTIAL (PRIMARY) HYPERTENSION (5) T2DM (type 2 diabetes mellitus) Code(s): E11.9 - TYPE 2 DIABETES MELLITUS WITHOUT COMPLICATIONS Qualifiers: Diabetes mellitus chcf insulin use: without chcf use Diabetes mellitus complication status: without complication Qualified Code(s): E11.9 - Type 2 diabetes mellitus without complications
--- NOTE | 2019-06-13 14:52 | CON.GI ---
Consult Consult Specialty:: Gastroenterology Referred by:: Portia Christine MD Reason for Consultation:: Abnormal LFTs, Pancreatic mass - History of Present Illness Chief Complaint: Profound weight loss History of Present Illness: 84M is admitted with obstructive jaundice with anorexia and over 30lbs weight loss. He has also been experiencing left sided abdominal pain for which he was admitted to [facility] last week. A CT revealed a pancreatic head mass with dilation of the pancreatic duct and intrahepatic and common bile ducts and with occlusion of the superior mesenteric vein. He is known to my group since he presented with a diverticular hemorrhage in 2012. Colonoscopy in 2012 revealed moderate diverticulosis universally and led to the removal of a serrated adenoma of the transverse colon. EGD revealed GERD above a hiatal hernia and antral erosions. He last had a colonoscopy with Dr Rivera on 12/30/14 which determined hemorrhoids to be the source of rectal bleeding at that time. - History Source History Provided By: Patient Limitations to Obtaining History: No Limitations - Past Medical History PLEAT TAPER: Yes: Other (Migraine headaches) Cardio/Vascular: Yes: HTN Gastrointestinal: Yes: Constipation, Diverticulosis (diverticular hemorrhage 2012), GERD, GI Bleed (diverticular hemorrhage 2012), Hiatal Hernia, Other ( serrated adenoma tx colon polyp 2012) Renal/: Yes: BPH, Renal Calculi Endocrine: Yes: Diabetes Mellitus Additional Medical History: Migraines - Past Surgical History Past Surgical History: Yes: None, Colonoscopy, Upper Endoscopy - Alcohol/Substance Use Hx Alcohol Use: Yes (Have not used in "many years") 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, Heroin (IVDA remotely) - Smoking History Smoking history: Former smoker Have you smoked in the past 12 months: No Aproximately how many cigarettes per day: 0 If you are a former smoker, when did you quit?: 50 YRS AGO - Social History Usual Living Arrangement: With Spouse ADL: Independent 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 Place of : [facility] History of Recent Travel: No Home Medications - Allergies Allergies/Adverse Reactions: Allergies Allergy/AdvReac Type Severity Reaction Status Date / Time No Known Allergies Allergy Verified 06/13/19 10:34 - Home Medications Home Medications: Ambulatory Orders Losartan Potassium 100 mg PO DAILY 09/04/14 Amlodipine Besylate 5 mg PO HS 06/04/19 Insulin Glargine,Hum.rec.anlog [Arturo Hewitt] 14 unit SQ HS 06/04/19 Polyethylene Glycol 3350 17 gm PO PRN PRN 06/04/19 Butalb/Acetaminophen/Caffeine [Pufoog-Ogvaxmml-Msov 50-325-40] 1 each PO TID Family Medical History Family Hx Cancer: Mother (? oxide furnace tender tumor), Sister (uterine cancer, another sister of lung cancer) Family Hx Diabetes: Mother (lived to 90, of diabetic complications, Taty believes she had a oxide furnace tender tumor), Father ( of diabetic complicastions in his 80's) Review of Systems - Review of Systems Constitutional: reports: Loss of Appetite, Unintentional Wgt. Loss, Weakness Eyes: reports: No Symptoms HENT: reports: No Symptoms Neck: reports: No Symptoms Cardiovascular: reports: No Symptoms Respiratory: reports: No Symptoms Gastrointestinal: reports: Abdominal Pain, Constipation Musculoskeletal: reports: Joint Pain Physical Exam-GI Vital Signs: Vital Signs Temperature 98.2 F 06/13/19 12:58 Pulse Rate 47 L 06/13/19 12:58 Respiratory Rate 16 06/13/19 10:36 Blood Pressure 117/64 06/13/19 12:58 O2 Sat by Pulse Oximetry (%) 100 06/13/19 12:58 CBC,CMP WBC 5.2 K/mm3 (4.0-10.0) 06/13/19 10:42 RBC 3.39 M/mm3 (4.00-5.60) L 06/13/19 10:42 Hgb 12.2 GM/dL (11.7-16.9) 06/13/19 10:42 Hct 35.8 % (35.4-49) 06/13/19 10:42 MCV 105.6 fl (80-96) H 06/13/19 10:42 MCH 35.9 pg (25.7-33.7) H 06/13/19 10:42 MCHC 34.0 g/dl (32.0-35.9) 06/13/19 10:42 RDW 17.0 % (11.9-15.9) H 06/13/19 10:42 Plt Count 356 K/MM3 (134-434) D 06/13/19 10:42 MPV 7.9 fl (7.5-11.1) 06/13/19 10:42 Absolute Neuts (auto) 4.5 K/mm3 (1.5-8.0) 06/13/19 10:42 Neutrophils % 86.9 % (42.8-82.8) H 06/13/19 10:42 Lymphocytes % 6.6 % (8-40) L D 06/13/19 10:42 Monocytes % 6.2 % (3.8-10.2) 06/13/19 10:42 Eosinophils % 0.2 % (0-4.5) 06/13/19 10:42 Basophils % 0.1 % (0-2.0) 06/13/19 10:42 Nucleated RBC % 0 % (0-0) 06/13/19 10:42 Platelet Estimate Adequate 06/13/19 10:42 Polychromasia 1+ 06/13/19 10:42 Macrocytosis 1+ 06/13/19 10:42 Spherocytes 1+ 06/13/19 10:42 Ovalocytes 1+ 06/13/19 10:42 Sodium 138 mmol/L (136-145) 06/13/19 10:42 Potassium 4.9 mmol/L (3.5-5.1) 06/13/19 10:42 Chloride 104 mmol/L (98-107) 06/13/19 10:42 Carbon Dioxide 30 mmol/L (21-32) 06/13/19 10:42 Anion Gap 4 MMOL/L (8-16) L 06/13/19 10:42 BUN 8.4 mg/dL (7-18) 06/13/19 10:42 Creatinine 1.0 mg/dL (0.55-1.3) 06/13/19 10:42 Est GFR (CKD-EPI)AfAm 80.88 06/13/19 10:42 Est GFR (CKD-EPI)NonAf 69.78 06/13/19 10:42 POC Glucometer 135 UNITS (80-120) 06/13/19 15:10 Random Glucose 98 mg/dL (74-106) 06/13/19 10:42 Calcium 8.9 mg/dL (8.5-10.1) 06/13/19 10:42 Total Bilirubin 7.5 mg/dL (0.2-1) H 06/13/19 10:42 AST 206 U/L (15-37) H 06/13/19 10:42 ALT 315 U/L (13-61) H 06/13/19 10:42 Alkaline Phosphatase > 1000 U/L (45-117) H 06/13/19 10:42 Total Protein 6.9 g/dl (6.4-8.2) 06/13/19 10:42 Albumin 3.0 g/dl (3.4-5.0) L 06/13/19 10:42 Total Amylase 224 U/L (25-115) H 06/13/19 10:42 Lipase 1043 U/L (73-393) H 06/13/19 10:42 Current Medications Generic Name Dose Route Start Last Admin Trade Name Freq PRN Reason Stop Dose Admin Amlodipine Besylate 5 mg 06/13/19 22:00 Norvasc - PO HS NATALIA Enoxaparin Sodium 40 mg 06/14/19 10:00 Lovenox - SQ DAILY NATALIA Potassium Chloride/Dextrose/Sod Cl 10 meq in 1,000 mls @ 100 mls/hr 06/13/19 14:00 D5-1/2ns+10 Meq Kcl - IV ASDIR NATALIA Losartan Potassium 100 mg 06/14/19 10:00 Cozaar - PO DAILY NATALIA Polyethylene Glycol 17 gm 06/13/19 13:48 Miralax (For Daily Use) - PO PRN PRN CONSTIPATION Constitutional: Yes: Calm Eyes: Yes: Sclera Icterus HENT: Yes: Normocephalic Neck: Yes: Trachea Midline Cardiovascular: Yes: Regular Rate and Rhythm Respiratory: Yes: CTA Bilaterally Gastrointestinal Inspection: Yes: Other (scaphoid) ...Auscultate: Yes: Normoactive Bowel Sounds ...Palpate: Yes: Soft, Other (nontender) ...Rectal Exam: Yes: Guaiac Negative (2+ prostate, brown guaiac negatove stool) , Hemorrhoids/External Neurological: Yes: Alert, Oriented Labs: CBC, BMP 06/13/19 10:42 06/13/19 10:42 INR, PTT INR 1.03 (0.83-1.09) 06/13/19 10:42 Laboratory Tests 09/28/18 06/03/19 06/04/19 01:28 22:00 07:25 Total Bilirubin 0.6 5.3 H 5.3 H 06/05/19 06/06/19 06/07/19 07:20 09:16 07:15 Total Bilirubin 4.7 H 5.2 H 4.9 H 06/13/19 10:42 Total Bilirubin 7.5 H Laboratory Tests 04/01/13 06/05/19 06/06/19 06:00 07:20 09:16 Ferritin 129.1 Direct Bilirubin 2.8 H Carcinoembryonic Ag 1.7 CA 19-9 Antigen 9182 H CA 125 Antigen 28.6 Imaging - Results Cat Scan: Report Reviewed ( Final Report CT ABDOMEN & PELVIS CT WITH CONTR Show Printer-Friendly Version with Image (1 of 1) Show Printer- Friendly Version without images Patient Name: Taty Pritchett : 1934 ID: [id number] Study Date: 04-Jun-2019 19:12 [facility] Name: TATY PRITCHETT DEPARTMENT OF RADIOLOGY Phys: Sylvie Santacruz NP : 01/02 Age: 84 Sex: M [facility] Acct: [id number] Loc : FM/S [address] [facility]. Exam Date: 06/04/19 Status: [place] [address] Unit Number: [id number] EXAM#: TYPE/EXAM: RESULT: [id number] CT/ABDOMEN PELVIS CT WITH CONTR Abdomen and pelvis CT (with contrast) Clinical information: abdominal pain Multiplanar imaging was performed utilizing intravenous and oral contrast. The current exam is correlated with a noncontrast CT study performed earlier as well as with a 2014 contrast-enhanced CT exam. In comparison to the 2014 CT exam interval development of development of pancreatic head enlargement is noted with resultant occlusion of the contiguous segment of the superior mesenteric vein and partial occlusion of the splenic vein. Development of dilatation of the main pancreatic duct is noted as well as extrahepatic and intrahepatic biliary tract dilatation. The common bile duct diameter is approximately 1.3 cm. Development of associated gallbladder overdistention is noted. Mild mesenteric edema is noted diffusely possibly secondary to previously described superior mesenteric vein occlusion. Since the previous exam there is a marked paucity of intra-abdominal and subcutaneous fat diffusely. No evidence of pneumoperitoneum or bowel obstruction. Interval development of a small amount of ascites is noted within the abdomen and pelvis since the 2014 CT exam. There is no obvious lymphadenopathy. The liver, spleen, adrenal glands and kidneys demonstrate no discrete pathology. There is no aortic aneurysm. 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 The appendix appears unremarkable. Colonic diverticulosis is noted without evidence of acute diverticulitis. There is no gross small bowel abnormality. The osseous structures demonstrate no obvious CT evidence of acute pathology or neoplastic disease. Impression: In comparison to a 2014 CT exam interval pancreatic head/uncinate process enlargement is noted suggestive of neoplastic disease. There is resultant development of biliary tract obstruction including gallbladder overdistention. Development of dilatation of the main pancreatic duct is also noted. Interval development of superior mesenteric vein occlusion is noted at the level the pancreatic head secondary to encasement. There is partial occlusion of the splenic vein adjacent to the junction with the main portal vein. Mild diffuse mesenteric edema is noted possibly secondary to mesenteric vein occlusion. A small amount of ascites is noted. Reported By: Robin Brenner MD 06/04/192051 Technologist: Marco A Osorio Transcribed Date/Time: 06/04/192051 Rn Examiner: Robin Brenner Printed Date/Time: By: Signed by: Robin Brenner Signed on : 04-Jun-2019 20:53) Problem List - Problems (1) Obstructive jaundice due to malignant neoplasm Code(s): K83.1 - OBSTRUCTION OF BILE DUCT; C80.1 - MALIGNANT (PRIMARY) NEOPLASM , UNSPECIFIED (2) Diabetes 1.5, managed as type 2 Code(s): E13.9 - OTHER SPECIFIED DIABETES MELLITUS WITHOUT COMPLICATIONS (3) Serrated polyp of colon Code(s): K63.5 - POLYP OF COLON (4) Diverticulosis Code(s): K57.90 - DVRTCLOS OF INTEST, PART UNSP, W/O PERF OR ABSCESS W/O BLEED (5) Hiatal hernia with GERD Code(s): K21.9 - GASTRO-ESOPHAGEAL REFLUX DISEASE WITHOUT ESOPHAGITIS; K44.9 - DIAPHRAGMATIC HERNIA WITHOUT OBSTRUCTION OR GANGRENE (6) Elevated liver enzymes Code(s): R74.8 - ABNORMAL LEVELS OF OTHER SERUM ENZYMES (7) HTN (hypertension) Code(s): I10 - ESSENTIAL (PRIMARY) HYPERTENSION (8) Hyperbilirubinemia Code(s): E80.6 - OTHER DISORDERS OF BILIRUBIN METABOLISM (9) Weight loss Code(s): R63.4 - ABNORMAL WEIGHT LOSS Assessment/Plan Impression: - The picture is entirely consistent with obstructive jaundice due to an advanced pancreatic cancer. This could alternatively be a cholangiocarcinoma. The prognosis is grim with either. I have explained to Taty, his and other family members that he is in danger of progressive liver failure and hepatic coma if the obstruction is not palliatively relieved. I discussed the potential for serious complications associated with ERCP including hemorrhage, perforation and ERCP induced pancreatitis leading to multiorgan failure. He has opted to have this done. - Personal h/o serrated colon adenoma and doiverticulosis - HH with GERD resolved with weight loss Plan: -- I will try to arrange transfer for ERCP with placement of a metallic stent at a tertiary care center but if ERCP needs to be done emergently I will do so. He has granted an informed consent for this -- Oncology consultation is advised Discussed with Dr Pool Peterson
[2019-06-13 14:53] VITALS: BMI 16.7
[2019-06-13] MEDS: DEXTROSE 5%-0.45% SALINE 1,000 ML IV SCH (17:31)
[2019-06-13] MEDS: amLODIPine BESYLATE 5 MG TABLET (FP) PO SCH (21:36)
[2019-06-14] MEDS: DEXTROSE 5%-0.45% SALINE 1,000 ML IV SCH (03:48)
[2019-06-14 07:54] LABS: BASO % 0.4 % (0-2.0); EOS % 0.5 % (0-4.5); HEMATOCRIT 26.7 % (35.4-49); HEMOGLOBIN 9.2 GM/dL (11.7-16.9); LYMPH % 12.2 % (8-40); MCHC 34.4 g/dl (32.0-35.9); MEAN CELL VOLUME 104.6 fl (80-96); MEAN PLT VOLUME 7.5 fl (7.5-11.1); MONO % 7.5 % (3.8-10.2); NEUT % 79.4 % (42.8-82.8); PLATELET COUNT 242 K/MM3 (134-434); RBC 2.55 M/mm3 (4.00-5.60); RDW 16.8 % (11.9-15.9); WHITE BLOOD COUNT 5.5 K/mm3 (4.0-10.0)
--- NOTE | 2019-06-14 08:10 | PN ---
Progress Note, Physician Chief Complaint: No new episode of hypoglycemia - Current Medication List Current Medications: Active Medications Amlodipine Besylate (Norvasc -) 5 mg PO HS [facility] Last Admin: 06/13/19 21:36 Dose: 5 mg Dextrose/Sodium Chloride (D5-1/2ns -) 1,000 mls @ 83 mls/hr IV ASDIR NATALIA Last Admin: 06/14/19 03:48 Dose: 83 mls/hr Losartan Potassium (Cozaar -) 100 mg PO DAILY NATALIA Pantoprazole Sodium (Protonix -) 40 mg PO DAILY NATALIA Polyethylene Glycol (Miralax (For Daily Use) -) 17 gm PO PRN PRN PRN Reason: CONSTIPATION - Objective Vital Signs: Vital Signs Temperature 97.8 F 06/14/19 06:00 Pulse Rate 53 L 06/14/19 06:00 Respiratory Rate 06/14/19 06:00 Blood Pressure 118/55 L 06/14/19 06:00 O2 Sat by Pulse Oximetry (%) 100 06/13/19 21:00 Elderly man not in distress HEENT: Mm moist, Jaundice, no Nystagmus NECK: No JVd No Bruit CHEST: CTA B/L CVS: S1S2 R no m/g/r ABD: non tender Bs + EXT: No edema pulses + HERBARIUM CURATOR: AOX3 Non Focal Labs: CBC, BMP 06/14/19 06:50 INR, PTT INR 1.03 (0.83-1.09) 06/13/19 10:42 Problem List - Problems (1) Altered mental state Assessment/Plan: Due to insulin induced hypoglycemia, improved Code(s): R41.82 - ALTERED MENTAL STATUS, UNSPECIFIED (2) Obstructive jaundice due to malignant neoplasm Assessment/Plan: Most likely pancreatic mass/Billairy malignancy needs patient is evaluated by GI consult, 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 Code(s): K83.1 - OBSTRUCTION OF BILE DUCT; C80.1 - MALIGNANT (PRIMARY) NEOPLASM , UNSPECIFIED (3) Elevated lipase Assessment/Plan: Due to Neoplasm Code(s): R74.8 - ABNORMAL LEVELS OF OTHER SERUM ENZYMES (4) HTN (hypertension) Assessment/Plan: Cont amlodipine and losartan Code(s): I10 - ESSENTIAL (PRIMARY) HYPERTENSION (5) T2DM (type 2 diabetes mellitus) Assessment/Plan: Will start on correction dose insulin. Problems reviewed: Yes Code(s): E11.9 - TYPE 2 DIABETES MELLITUS WITHOUT COMPLICATIONS Qualifiers: Diabetes mellitus meterman insulin use: without meterman use Diabetes mellitus complication status: without complication Qualified Code(s): E11.9 - Type 2 diabetes mellitus without complications
[2019-06-14 08:25] LABS: ALBUMIN 2.3 g/dl (3.4-5.0); BILIRUBIN,TOTAL 5.3 mg/dL (0.2-1); CALCIUM 8.1 mg/dL (8.5-10.1); CREATININE 0.8 mg/dL (0.55-1.3); POTASSIUM 3.3 mmol/L (3.5-5.1)
[2019-06-14] MEDS: LOSARTAN POTASSIUM 50 MG TABLET (FP) PO SCH (09:42)
[2019-06-14] MEDS: PANTOPRAZOLE 40 MG TABLET PO SCH (09:45)
[2019-06-14] MEDS ORDERED: ENOXAPARIN NA (PORCINE) 40 MG/0.4 ML DISP.SYRIN SQ SCH (10:00)
[2019-06-14] MEDS ORDERED: POTASSIUM CHLORIDE ORAL LIQUID 20 MEQ/15 ML PO ONE (13:12)
--- NOTE | 2019-06-14 14:12 | EKG ---
Test Reason : Blood Pressure : / mmHG Vent. Rate : 042 BPM Atrial Rate : 042 BPM P-R Int : 194 ms QRS Dur : 092 ms QT Int : 512 ms P-R-T Axes : 068 073 054 degrees QTc Int : 427 ms POOR DATA QUALITY, INTERPRETATION MAY BE ADVERSELY AFFECTED MARKED SINUS BRADYCARDIA SEPTAL INFARCT (CITED ON OR BEFORE 03-JUN-2019) ABNORMAL ECG WHEN COMPARED WITH ECG OF 03-JUN-2019 22:43, FUSION COMPLEXES ARE NO LONGER PRESENT PREMATURE VENTRICULAR COMPLEXES ARE NO LONGER PRESENT Confirmed by Liss Love ([id number]) on 06/14/2019 2:12:08 PM Referred By: Confirmed By:Liss Love
[2019-06-14] MEDS: INSULIN SLIDING SCALE (NOVOLOG) 1 VIAL SQ SCH (18:48)
[2019-06-14] MEDS: amLODIPine BESYLATE 5 MG TABLET (FP) PO SCH (21:24)
[2019-06-14] MEDS ORDERED: traMADol HCL 50 MG TABLET PO ONE (23:32)
[2019-06-15] MEDS ORDERED: INSULIN (NOVOLOG) ASPART 100 UNITS/ML 10ML VIAL ONE ×2 (06:29→11:39)
[2019-06-15] MEDS: INSULIN SLIDING SCALE (NOVOLOG) 1 VIAL SQ SCH ×2 (06:56→11:41)
--- NOTE | 2019-06-15 11:03 | PN ---
Progress Note, Physician Chief Complaint: No new episode of hypoglycemia - Current Medication List Current Medications: Active Medications Amlodipine Besylate (Norvasc -) 5 mg PO HS [facility] Last Admin: 06/14/19 21:24 Dose: 5 mg Insulin Aspart (Novolog Vial Sliding Scale -) 1 vial SQ TIDAC PENDING S[facility] TO [facility]; Protocol Last Admin: 06/15/19 06:56 Dose: Not Given Losartan Potassium (Cozaar -) 100 mg PO DAILY [facility] Last Admin: 06/14/19 09:42 Dose: Not Given Pantoprazole Sodium (Protonix -) 40 mg PO DAILY [facility] Last Admin: 06/14/19 09:45 Dose: 40 mg - Objective Vital Signs: Vital Signs Temperature 98.5 F 06/15/19 05:53 Pulse Rate 61 06/15/19 05:53 Respiratory Rate 18 06/15/19 05:53 Blood Pressure 113/55 L 06/15/19 05:53 O2 Sat by Pulse Oximetry (%) 100 06/14/19 21:00 Elderly man not in distress HEENT: Mm moist, Jaundice, no Nystagmus NECK: No JVd No Bruit CHEST: CTA B/L CVS: S1S2 R no m/g/r ABD: non tender Bs + EXT: No edema pulses + PRICE CHANGER: AOX3 Non Focal Labs: CBC, BMP 06/14/19 06:50 06/14/19 06:50 INR, PTT INR 1.03 (0.83-1.09) 06/13/19 10:42 Problem List - Problems (1) Altered mental state Assessment/Plan: Due to insulin induced hypoglycemia, improved Code(s): R41.82 - ALTERED MENTAL STATUS, UNSPECIFIED (2) Obstructive jaundice due to malignant neoplasm Assessment/Plan: Most likely pancreatic mass/Billairy malignancy needs patient is evaluated by GI consult, 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 Code(s): K83.1 - OBSTRUCTION OF BILE DUCT; C80.1 - MALIGNANT (PRIMARY) NEOPLASM , UNSPECIFIED (3) Elevated lipase Assessment/Plan: Due to Neoplasm Code(s): R74.8 - ABNORMAL LEVELS OF OTHER SERUM ENZYMES (4) HTN (hypertension) Assessment/Plan: Cont amlodipine and losartan Code(s): I10 - ESSENTIAL (PRIMARY) HYPERTENSION (5) T2DM (type 2 diabetes mellitus) Assessment/Plan: Will start on correction dose insulin. 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
[2019-06-15 11:13] LABS: BASO % 0.4 % (0-2.0); EOS % 0.6 % (0-4.5); HEMATOCRIT 28.8 % (35.4-49); HEMOGLOBIN 9.8 GM/dL (11.7-16.9); LYMPH % 11.9 % (8-40); MCH 35.7 pg (25.7-33.7); MCHC 33.9 g/dl (32.0-35.9); MEAN CELL VOLUME 105.1 fl (80-96); MEAN PLT VOLUME 7.5 fl (7.5-11.1); MONO % 7.6 % (3.8-10.2); NEUT % 79.5 % (42.8-82.8); PLATELET COUNT 260 K/MM3 (134-434); RBC 2.74 M/mm3 (4.00-5.60); RDW 16.7 % (11.9-15.9)
[2019-06-15] MEDS: LOSARTAN POTASSIUM 50 MG TABLET (FP) PO SCH (11:34)
[2019-06-15] MEDS: PANTOPRAZOLE 40 MG TABLET PO SCH (11:34)
[2019-06-15 12:07] LABS: ALBUMIN 2.4 g/dl (3.4-5.0); BILIRUBIN,TOTAL 6.4 mg/dL (0.2-1); BLOOD UREA NITROGEN 5.8 mg/dL (7-18); CALCIUM 7.7 mg/dL (8.5-10.1); CREATININE 0.7 mg/dL (0.55-1.3); POTASSIUM 3.5 mmol/L (3.5-5.1); TOT PROT 5.1 g/dl (6.4-8.2)
--- NOTE | 2019-06-15 14:33 | DS ---
Physical Examination Vital Signs: Vital Signs Temperature 98.5 F 06/15/19 05:53 Pulse Rate 61 06/15/19 05:53 Respiratory Rate 18 06/15/19 05:53 Blood Pressure 113/55 L 06/15/19 05:53 O2 Sat by Pulse Oximetry (%) 100 06/14/19 21:00 Elderly man not in distress HEENT: Mm moist, Jaundice, no Nystagmus NECK: No JVd No Bruit CHEST: CTA B/L CVS: S1S2 R no m/g/r ABD: non tender Bs + EXT: No edema pulses + EQUIPMENT TECH: AOX3 Non Focal Findings/Remarks: OBstructive jaundice Labs: 06/15/19 10:00 06/15/19 10:00 - WBC 5.2 K/mm3 (4.0-10.0) 06/13/19 10:42 RBC 3.39 M/mm3 (4.00-5.60) L 06/13/19 10:42 Hgb 12.2 GM/dL (11.7-16.9) 06/13/19 10:42 Hct 35.8 % (35.4-49) 06/13/19 10:42 MCV 105.6 fl (80-96) H 06/13/19 10:42 MCH 35.9 pg (25.7-33.7) H 06/13/19 10:42 MCHC 34.0 g/dl (32.0-35.9) 06/13/19 10:42 RDW 17.0 % (11.9-15.9) H 06/13/19 10:42 Plt Count 356 K/MM3 (134-434) D 06/13/19 10:42 MPV 7.9 fl (7.5-11.1) 06/13/19 10:42 Absolute Neuts (auto) 4.5 K/mm3 (1.5-8.0) 06/13/19 10:42 Neutrophils % 86.9 % (42.8-82.8) H 06/13/19 10:42 Lymphocytes % 6.6 % (8-40) L D 06/13/19 10:42 Monocytes % 6.2 % (3.8-10.2) 06/13/19 10:42 Eosinophils % 0.2 % (0-4.5) 06/13/19 10:42 Basophils % 0.1 % (0-2.0) 06/13/19 10:42 Nucleated RBC % 0 % (0-0) 06/13/19 10:42 Platelet Estimate Adequate 06/13/19 10:42 Polychromasia 1+ 06/13/19 10:42 Macrocytosis 1+ 06/13/19 10:42 Spherocytes 1+ 06/13/19 10:42 Ovalocytes 1+ 06/13/19 10:42 Sodium 138 mmol/L (136-145) 06/13/19 10:42 Potassium 4.9 mmol/L (3.5-5.1) 06/13/19 10:42 Chloride 104 mmol/L (98-107) 06/13/19 10:42 Carbon Dioxide 30 mmol/L (21-32) 06/13/19 10:42 Anion Gap 4 MMOL/L (8-16) L 06/13/19 10:42 BUN 8.4 mg/dL (7-18) 06/13/19 10:42 Creatinine 1.0 mg/dL (0.55-1.3) 06/13/19 10:42 Est GFR (CKD-EPI)AfAm 80.88 06/13/19 10:42 Est GFR (CKD-EPI)NonAf 69.78 06/13/19 10:42 POC Glucometer 169 UNITS (80-120) 06/13/19 10:57 Random Glucose 98 mg/dL (74-106) 06/13/19 10:42 Calcium 8.9 mg/dL (8.5-10.1) 06/13/19 10:42 Total Bilirubin 7.5 mg/dL (0.2-1) H 06/13/19 10:42 AST 206 U/L (15-37) H 06/13/19 10:42 ALT 315 U/L (13-61) H 06/13/19 10:42 Alkaline Phosphatase > 1000 U/L (45-117) H 06/13/19 10:42 Total Protein 6.9 g/dl (6.4-8.2) 06/13/19 10:42 Albumin 3.0 g/dl (3.4-5.0) L 06/13/19 10:42 Total Amylase 224 U/L (25-115) H 06/13/19 10:42 Lipase 1043 U/L (73-393) H 06/13/19 10:42 Discharge Summary Problems reviewed: Yes Reason For Visit: HYPERBILIRUBINEMIA;HYPOGLYCEMIA;ELEVATED LIVER Current Active Problem; Sever Malnutrition; Obstructive jaundice due to malignant Neoplasm Pancreatic mass Dilated CBD Hospital Course: 84 year-old male known since previous Hospitalization at [facility] for Syncope and LGI bleed in 2017 H/O HTN, T2DM on Lantus, recently diagnosed painless obstructive jaundice admitted at [facility] CT abd shows pancreatic mass patient signed AMA with STEEP TENDER pending further w/u for Pancreatic mass as wwas travelling out of town, today morning as per patient was altered , disoriented, mumbling, last night recived lantus FS noted 35 BIB EMS to Ed recived D 50 with rise in FS and return back to base line MS, no focal weakness , denies any fever, chills, abd pain, dysuria, cough and SOB, lab shows rising TB, Alk phosphate is being admitted for further evaluation and management.Patient decided for pallitive and Hospice care evaluted by Pallitive care at [facility] will be Dc home. Condition: Guarded - Instructions Diet, Activity, Other Instructions: Diet as tolerated Please monitor Fs 3 times a day before Break fast, Lunch and Dinner' Insulin Humalog 2 unit SQ if blood Glucose 150-200 milligram Insulin Humalog 4 units subcu if blood glucose is between 200 to 250 mg Insulin Humalog 6 units subcu if blood glucose is between 250 to 300 mg Insulin Humalog 8 units subcutaneous if blood glucose is between 300 to 350 mg Insulin Humalog 10 units subcutaneous bloody is in between 3 50-400 Referrals: Juve Hickman MD [Primary Care Provider] - Disposition: VNS/HOME HEALTH CARE - Home Medications Comprehensive Discharge Medication List: Ambulatory Orders Losartan Potassium 100 mg PO DAILY 09/04/14 Amlodipine Besylate 5 mg PO HS 06/04/19 Polyethylene Glycol 3350 17 gm PO PRN PRN 06/04/19 Butalb/Acetaminophen/Caffeine [Ujpxpk-Kvhtfhnx-Baxa 50-325-40] 1 each PO TID Insulin Lispro [Humalog] See Protocol SQ ACHS 30 Days #1 cartridge 06/14/19 Pantoprazole Sodium [Protonix -] 40 mg PO DAILY #30 tablet.ec 06/14/19
[2019-06-15 15:53] VITALS: BP 120/60; PULSE 68; TEMP 98
== END 2019-06-15 16:00 | disposition home health service (06) | DRG 435 ==
LOC: JER 09:48 → JERBED 12:12 → J8W 13:23
PROVIDERS: ADMIT Internal Medicine; ATTEND Internal Medicine
DX: C25.9 Malignant neoplasm of pancreas, unspecified (principal); K83.1 Obstruction of bile duct; E43 Unspecified severe protein-calorie malnutrition; Z68.1 Body mass index [BMI] 19.9 or less, adult; R64 Cachexia; E11.649 Type 2 diabetes mellitus with hypoglycemia without coma; R74.8 Abnormal levels of other serum enzymes; R41.82 Altered mental status, unspecified; I10 Essential (primary) hypertension; K86.9 Disease of pancreas, unspecified; E80.6 Other disorders of bilirubin metabolism; D49.0 Neoplasm of unspecified behavior of digestive system; K21.9 Gastro-esophageal reflux disease without esophagitis; E87.6 Hypokalemia
CPT/HCPCS: 36415; 76700-TC; 80053; 81003; 82150; 82248; 82962; 83690; 85025; 85610; 85730; 87086; 93005; 93010; 99284-25